=== PATIENT | male | born 1955 | race Caucasian/White ===

== ENCOUNTER → 2019-01-22 08:40 | Outpatient (CLI) | payer BC, SELFPAY ==
--- NOTE | 2019-01-22 09:06 | EKG12_ITS ---
Test Reason : PREOP Blood Pressure : / mmHG Vent. Rate : 073 BPM Atrial Rate : 073 BPM P-R Int : 160 ms QRS Dur : 160 ms QT Int : 432 ms P-R-T Axes : 000 034 -10 degrees QTc Int : 475 ms Normal sinus rhythm Right bundle branch block Possible Inferior infarct , age undetermined , cannot be excluded Abnormal ECG Confirmed by FRANCESCO EPPS, LYLY ([id number]), order tracer MICHAEL NORIEGA ([id number]) on 01/23/2019 9:40:43 AM Referred By: Darryl Block Confirmed By:LYLY MAYA MD
[2019-01-22 09:29] LABS: Hematocrit 49.7 % (40-54); Hemoglobin 16.3 g/dL (13.0-16.5); Mean Corp Hgb Conc 32.8 g/dL (32-36); Mean Corpuscular Volume 88.3 fL (80-94); Platelet Count 345 K/mm3 (150-450); RBC Distribution Width CV 13.3 % (11.6-14.6); RBC Distribution Width SD 43.2 fl (35.1-43.9); Red Blood Count 5.63 M/mm3 (4.6-6.2); White Blood Count 9.9 K/mm3 (4.4-11.0)
[2019-01-22 10:07] LABS: Anion Gap 6 (5-15); BUN 16 mg/dL (7-18); BUN/Creat Ratio 19.6 RATIO (10-20); Calcium,Total 8.9 mg/dL (8.5-10.1); Chloride 101 mmol/L (98-107); Creatinine, Serum 0.82 mg/dL (0.70-1.30); EST Glomerular Filtration Rate 102 mL/min (>60); Est Glom Filt Rate - Afr Amer 123 mL/min (>60); Glucose 232 mg/dL (74-106); PSA,Total - Annual Screen 0.86 ng/mL (0.00-4.00); Potassium 4.3 mmol/L (3.5-5.1); Sodium Level 136 mmol/L (136-145)
== END ==
PROVIDERS: Referring Provider Urology; Visit Provider Urology
DX: Z01.812 Encounter for preprocedural laboratory examination (principal); I45.10 Unspecified right bundle-branch block; Z12.5 Encounter for screening for malignant neoplasm of prostate
CPT/HCPCS: 36415; 80048; 84153; 85027; 93005; G0103

== ENCOUNTER → 2020-07-24 09:05 | Outpatient (CLI) | payer BC, SELFPAY ==
[2020-07-15 08:04] VITALS: BMI 36.0
--- NOTE | 2020-07-24 14:04 | PFTCOMP_ITS ---
COMPLETE PULMONARY FUNCTION TEST INTERPRETATION Brief HPI: Patient is a 64 year old male, currently under the care of myself, who presents to [facility] for complete pulmonary function tests secondary to diagnosis of cough. Respiratory therapist reports good effort and reproducible results. Interpretation: Forced expiration spirometry shows no large airways obstructive ventilatory defect with an FEV1 of 96% predicted. There is no significant bronchodilator response by strict ATS criteria. Spirograms are of good quality and plateau normally. The respiratory flow volume loop shows a normal pattern. Lung volumes by body plethysmography show a normal total lung capacity at 6.25 L, 115% predicted. All other lung volumes are within normal limits. Diffusion capacity by carbon monoxide is normal at 108% predicted. The airway resistance is normal. No previous pulmonary function tests were available for review. Impression: These pulmonary function tests are within normal limits
== END ==
PROVIDERS: PCP Family Medicine; Referring Provider Internal Medicine Critical Care Medicine; Visit Provider Internal Medicine Critical Care Medicine
DX: R05 Cough (principal); G47.10 Hypersomnia, unspecified
CPT/HCPCS: 94060; 94726; 94729; 95806

== ENCOUNTER 2023-01-24 07:50 | Inpatient (IN) | payer MEDICARE, SELFPAY ==
[2023-01-24] VITALS (9 sets, daily range): BP systolic 125–164; BP diastolic 63–98; PULSE 96–105; RESP 16–20; TEMP 35.9–37.5; O2SAT 86–98; BMI 36.4; BMI 35.9
--- NOTE | 2023-01-24 08:10 | CT_ITS ---
STUDY: CT ABDOMEN AND PELVIS WITH CONTRAST REASON FOR EXAM: Male, 67 years old. Lower abdominal wall cellulitis possible abscess. Recent drainage of a right groin abscess. RADIATION DOSAGE (If Supplied By Facility): CTDIvol = ( 17.19 ) mGy, DLP = ( 1471.97 ) mGycm TECHNIQUE: Transaxial images were obtained from the dome of the diaphragm to the symphysis pubis without oral contrast. 100 ML ISOVUE 300 was administered. Sagittal and coronal images were reconstructed. Individualized dose optimization techniques were used for this CT. COMPARISON: None. FINDINGS: The visualized lung bases are unremarkable. Coronary artery calcification. There is decreased attenuation of the liver consistent with steatosis. Normal gallbladder and extrahepatic biliary system. Normal spleen. Normal pancreas. Normal bilateral adrenal glands. Nonobstructive right intrarenal calculi. The largest calculus measures 8 mm. There is a 5.5 cm x 5.4 cm cyst in the inferior medial portion of the right kidney. Nonspecific right perinephric stranding. Nonobstructive calculi are seen within the left kidney. The largest calculus measures 6 mm. There is a 1 cm cyst in the inferior midportion of the left kidney. Nonspecific left perinephric stranding. There is a small hiatal hernia. Normal small intestine. Normal colon. The appendix is visualized and appears normal. There is scattered atherosclerotic calcification of the abdominal aorta and its major visceral branches., without a demonstrated aneurysm. Normal inferior vena cava. Normal retroperitoneum. Normal urinary bladder. There is a small umbilical hernia containing fat. There is a 3.5 cm x 18.7 cm soft tissue density with air-fluid level arising from the proximal aspect of the right groin extending down into the right side of the symphysis down to the level of the scrotum. This is consistent with an abscess. Increased markings are seen in the surrounding subcutaneous fat. The air component may be related to the recent incision and drainage. Normal osseous structures. CT/Abdomen/Pelvis W IV Cont ONLY IMPRESSION: Large complex soft tissue density with air-fluid level extending from the region of the groin down to the right scrotal region with air-fluid levels. This is in keeping with an abscess. Nonobstructive bilateral intrarenal calculi. Bilateral renal cysts. Nonspecific bilateral perinephric stranding. Fatty infiltration of the liver. Electronically Signed: Arian Lopez MD at 10:19 EST ,
--- NOTE | 2023-01-24 08:11 | EX.ED.DYSGE1 ---
HPI History of Present Illness Chief Complaint: Cellulitis Informant: patient Narrative Narrative: Patient presents with cellulitis in the right groin area that is not improving. Patient states that about 2 weeks ago he had a boil in the right groin. He got some drainage from it. He gets these commonly. But it was not getting better and the area is getting more red and swollen. He went to urgent care. They were able to get a little drainage from it. But he had a lot of thickened tissue in the suprapubic region and they did start him on antibiotics. He has been on doxycycline and taking it twice a day for the last 6 to 7 days. But he states is just not getting a lot better. The drainage has stopped. He is not having nausea or vomiting. He has had some subjective fevers but not measured. Patient denies any medical problems but has not seen a physician in quite some time. Only meds that he takes are an occasional Naprosyn. PFSH PFS Medical History Kidney stones Home Medications doxycycline hyclate 100 mg capsule 100 mg PO BID antibiotic 01/24/23 [History Last Taken 01/23/23] Allergy/AdvReac Type Severity Reaction Status Date / Time No Known Allergies Allergy Verified 01/24/23 07:51 Surgical History History of hammer toe correction History of knee surgery History of tonsillectomy Social History Smoking Status: Never smoker second hand exposure: Yes ROS ROS ED Constitutional Constitutional ED: Reports subjective Eyes Eyes: Denies blurry vision ENT ENT ED: Denies rhinorrhea Cardiovascular Cardiovascular: Denies chest pain, palpitations or racing heartbeat Respiratory/Chest Respiratory/Chest: Denies cough or dyspnea Gastrointestinal Gastrointestinal: Reports other Details: Patient has some discomfort in the lower abdominal wall but overall his abdomen does not hurt and he is eating drinking and moving bowels normally. ; Denies abdominal pain Genitourinary Genitourinary ED: Denies dysuria or hematuria Musculoskeletal Musculoskeletal: Denies myalgias Integumentary Reports abscess, rash and other Details: See history present illness. Neurologic Neurologic: Denies headache(s) Endocrine Endocrinology: Denies polydipsia or polyuria Hematologic/Lymphatic Hematologic/Lymphatic: Denies easy bleeding, easy bruising or lymphadenopathy Allergic/Immunologic Allergic/Immunologic ED: Denies urticaria EXAM Physical Exam Narrative Exam Narrative: CONSTITUTIONAL: Patient is nontoxic in appearance. The patient looks comfortable. HEENT: No notable trauma. Mucous membranes moist. EYES: No conjunctival injection. CARDIOVASCULAR: Minimally tachycardic rate currently just at about 90 though. Regular rhythm. No notable murmur. No JVD. RESPIRATORY: No respiratory distress. Breathing is unlabored. No wheezes. No rhonchi. No rales. No pain with a deep breath. GASTROINTESTINAL: Not distended. Bowel sounds are normal. No tenderness. No guarding. No rebound. No palpable mass. No bruit. GENITOURINARY: In the right side of his lower abdomen under the abdominal fold, there is some erythema. There is a small open area about 5 x 12 mm. Just lateral to this there is a little bit of the softness but it appears to have fully drained. The area is quite indurated. Moving medially in the lower abdomen centrally the fatty tissue there is thickened and indurated. But it does not appear to be fluctuant on exam but there is quite a bit of induration and it could hide abscess under this. It is not notably tender. Scrotum is enlarged but not at all indurated and its not painful. MUSCULOSKELETAL: Atraumatic. No peripheral edema. NEUROLOGICAL: Patient is alert and appropriate. No focal deficit noted. SKIN: See above. PSYCHIATRIC: Patient is calm. Mood is appropriate. Const Vital Signs: 01/24/23 07:51 Temperature 96.7 F L Temperature Source Temporal Pulse Rate 105 H Respiratory Rate 16 Blood Pressure 164/97 H Blood Pressure Mean 119 Pulse Ox 95 Oxygen Delivery Method Room Air MDM MDM MDM Narrative Medical decision making narrative: Patient now has 2 weeks of symptoms with almost 1 week on antibiotics. He is having some mild subjective fevers. But he still has a fair amount of swelling and induration. I will do blood work. Patient has no history of diabetes but has not been seen by a physician in years to have this checked. We will also scan the area looking for deeper involvement of the soft tissue. I will initiate vancomycin at this time. My independent interpretation of the patient's CT scan of the abdomen pelvis with IV contrast shows extensive involvement with subcutaneous abscess and some air along the right lower abdominal wall inguinal area and a little bit streaking down the right groin. Final reading is similar. Note is also made of nonspecific perinephric stranding. Patient CBC shows significantly elevated white count at 20,000. It does not appear as though he is on any steroids. Relatively high neutrophils. Patient's electrolytes show minimally low sodium. Renal functions normal. However, the patient's glucose is quite high at 321. This is low due to some background diabetes in the face of a current infection. He is given IV fluids. I will give him a low-dose of insulin to see how he responds to this. With the CT findings as above we did also check lactic acid that was normal at 1.0. C-reactive protein was high at 204. Hemoglobin A1 C is also high at 10.9. I discussed the case with surgeon, Dr. Turner who came down to evaluate the patient. Plan is further antibiotics and surgery. I also discussed the case with Dr. Wagoner who also be involved managing the patient medically. Lab Data Attestation: I reviewed the patient's lab results. Labs: Laboratory Results - last 24 hr 01/24/23 01/24/23 08:25 10:15 WBC 20.0 H RBC 5.48 Hgb 15.1 Hct 47.6 MCV 86.9 MCH 27.6 MCHC 31.7 L RDW Std Deviation 44.6 H RDW Coeff of July 13.9 Plt Count 375 MPV 10.1 Immature Gran % (Auto) 4.500 H Neut % (Auto) 75.5 H Lymph % (Auto) 9.6 L [place] % (Auto) 8.9 Eos % (Auto) 0.3 Baso % (Auto) 1.2 H Absolute Neuts (auto) 15.1 H Absolute Lymphs (auto) 1.92 Nucleated RBC % 0 Differential Comment SCANNED Diff Path Review May foll Sodium 135 L Potassium 4.4 Chloride 99 Carbon Dioxide 31.0 Anion Gap 5 BUN 11 Creatinine 0.87 Estim Creat Clear Calc 73.64 Est GFR (MDRD) Af Amer 113 Est GFR (MDRD) Non-Af 94 BUN/Creatinine Ratio 12.6 Glucose 321 H Hemoglobin A1c 10.9 H Lactic Acid 1.0 Calcium 9.3 C-React Prot Ext Range 204.00 H Radiography Diagnostic Testing: Clinical Impression(s) from Imaging Studies Abdomen/Pelvis CT 01/24/23 08:10 IMPRESSION: Large complex soft tissue density with air-fluid level extending from the region of the groin down to the right scrotal region with air-fluid levels. This is in keeping with an abscess. Nonobstructive bilateral intrarenal calculi. Bilateral renal cysts. Nonspecific bilateral perinephric stranding. Fatty infiltration of the liver. Electronically Signed: Arian Lopez MD at 10:19 EST , Management Discussion w/another healthcare provider: Hospitalist and [employer] Discharge Plan Triage Chief Complaint: Cellulitis ED Provider: Ashkan Burns Dx/Rx/DC Orders Clinical Impression: Abdominal wall cellulitis, Failure of outpatient treatment, New onset type 2 diabetes mellitus, Abscess of abdominal wall, Leukocytosis Prescriptions: No Action doxycycline hyclate 100 mg capsule 100 mg PO BID Patient Comments: RX FILLED AND STARTED ON 01-19-23. RX FILLED A 7 DAY SUPPLY Rx Instructions: TAKE 1 CAPSULE BY MOUTH 2 TIMES A DAY FOR 7 DAYS Primary Care Provider: Care Physician,No Primary Referrals: Care Physician,No Primary [Primary Care Provider] - Disposition Disposition: Acute Care Hospital [facility]
[2023-01-24] MEDS: 0.9% Normal Saline (1000mL) 1,000 ML 1000 ML IV (08:27)
[2023-01-24 08:36] LABS: Absolute Lymphocyte Count 1.92 X10^3/uL (0.83-4.51); Absolute Neutrophil Count 15.1 X10^3/uL (2.0-7.7); Basophil# 0.24 X10^3/uL; Basophil% 1.2 % (0-1); Eosinophil# 0.07 X10^3/uL; Eosinophils% 0.3 % (0-5); Hematocrit 47.6 % (40-54); Hemoglobin 15.1 g/dL (13.0-16.5); Lymphocyte # 1.92 X10^3/ul (0.83-4.51); Lymphocyte % 9.6 % (19-41); Mean Corp Hgb Conc 31.7 g/dL (32-36); Mean Corpuscular Hgb 27.6 pg (27.0-32.0); Mean Corpuscular Volume 86.9 fL (80-94); Mean Platelet Vol. 10.1 fl (6.2-12.0); Monocyte# 1.78 X10^3/uL; Monocyte% 8.9 % (0-10); NRBC Flagged by Analyzer 0 % (0-5); Neutrophil # 15.09 X10^3/uL (2.7-7.7); Neutrophil % 75.5 % (47-70); POSITIVE DIFFERENTIAL YES; Platelet Count 375 K/mm3 (150-450); RBC Distribution Width CV 13.9 % (11.6-14.6); RBC Distribution Width SD 44.6 fl (35.1-43.9); Red Blood Count 5.48 M/mm3 (4.6-6.2)
[2023-01-24] MEDS: Vancomycin HCl 1,500 MG in 0.9% Normal Saline (500mL Bag) 500 ML 250 MG IV (08:39)
[2023-01-24 08:45] LABS: Differential Indicated SCAN CRITERIA MET
[2023-01-24 08:48] LABS: Anion Gap 5 (5-15); BUN 11 mg/dL (7-18); BUN/Creat Ratio 12.6 RATIO (10-20); Calcium,Total 9.3 mg/dL (8.5-10.1); Chloride 99 mmol/L (98-107); Creatinine, Serum 0.87 mg/dL (0.70-1.30); EST Glomerular Filtration Rate 94 mL/min (>60); Est Glom Filt Rate - Afr Amer 113 mL/min (>60); Estimated Creatinine Clearance 73.64 ml/min; Glucose 321 mg/dL (74-106); Potassium 4.4 mmol/L (3.5-5.1); Sodium Level 135 mmol/L (136-145)
[2023-01-24] MEDS: Insulin Lispro 100 UNIT/ML INSULN.PEN SC ×4 (09:04→21:44)
[2023-01-24 09:11] LABS: Differential Comment SCANNED
[2023-01-24] MEDS: Morphine 4 MG/ML Syringe IV (10:27)
[2023-01-24] MEDS: Ondansetron 4 MG/2 ML Vial IV (10:27)
--- NOTE | 2023-01-24 11:13 | HP.PCM_ITS ---
HPI - General General Date of Admission: 01/24/23 Date of Service: 01/24/23 Chief Complaint: Cellulitis right groin HPI Narrative JASON JOYNER, is a 67 M who presents with a 10 day history of a right groin boil. Patient notes he has a history of boils along the underside of the abdomen. Patient notes they typically spontaneously rupture and resolve. Patient notes this specific boil did not. He notes last Monday his attempted to squeeze the abscess without any release. Patient then presented to urgent care in [facility], where the provider performed an incision and drainage of the area. Per patient there was a moderate amount of drainage. Patient notes he was placed on doxycycline for 10 days. Patient notes yesterday the drainage had suddenly stopped. He states the pubic region continued to feel swollen and the incision was closed. Patient contacted the provider at urgent care this morning and was told to present to the ED. Patient denies feeling feverish. Patient denies any medical history. Patient notes years ago he was told he was diabetic and was started on medication per his . She notes that he felt he did not need the medication and would change his diet to assist with his hyperglycemia. He then family physician was agreeable. Patient and his used to live in [place]. Since moving to [place] recently, they have not established with a family practice physician. [facility] Medical History Kidney stones Home Medications doxycycline hyclate 100 mg capsule 100 mg PO BID antibiotic 01/24/23 [History Last Taken 01/23/23] Allergy/AdvReac Type Severity Reaction Status Date / Time No Known Allergies Allergy Verified 01/24/23 07:51 Surgical History History of hammer toe correction History of knee surgery History of tonsillectomy Social History Smoking Status: Never smoker second hand exposure: Yes ROS Constitutional Constitutional: Reports fatigue Eyes Eyes: Reports systems reviewed and no addt'l complaints, except as documented ENT HEENT: Reports systems reviewed and no addt'l complaints, except as documented Cardiovascular Cardiovascular: Reports systems reviewed and no addt'l complaints, except as documented Respiratory/Chest Respiratory/Chest: Reports systems reviewed and no addt'l complaints, except as documented Gastrointestinal Gastrointestinal: Reports systems reviewed and no addt'l complaints, except as documented Genitourinary Genitourinary: Reports systems reviewed and no addt'l complaints, except as documented Musculoskeletal Musculoskeletal: Reports systems reviewed and no addt'l complaints, except as documented Integumentary Integumentary: Reports systems reviewed and no addt'l complaints, except as documented Neurologic Neurologic: Reports systems reviewed and no addt'l complaints, except as docu mented Psychiatric Psychiatric: Reports systems reviewed and no addt'l complaints, except as documented Endocrine Endocrinology: Reports systems reviewed and no addt'l complaints, except as documented Hematologic/Lymphatic Hematologic/Lymphatic: Reports systems reviewed and no addt'l complaints, except as documented Allergic/Immunologic Allergic/Immunologic: Reports systems reviewed and no addt'l complaints, except as documented Vital Signs Vital Signs Vital Signs: 01/24/23 07:51 Temperature 96.7 F L Temperature Source Temporal Pulse Rate 105 H Respiratory Rate 16 Blood Pressure 164/97 H Blood Pressure Mean 119 Pulse Ox 95 Oxygen Delivery Method Room Air Weight Weight: 219 lb Body Mass Index (BMI) 36.4 Physical Exam Const alert, oriented x3 and no apparent distress HEENT normocephalic and head/scalp atraumatic Eyes PERRL Neck full ROM Lymph Lymphatic: no lymphadenopathy noted Chest inspection of chest normal Resp normal respiratory effort and clear to auscultation bilaterally Cardio Rate: tachycardic Rhythm: regular rhythm GI GI Narrative: Abdomen- central obesity. right groin with notable erythema extending across the mons pubis. Previous incision in the right groin which is now closed. Palpable fluctuance. Just superior to the right groin incision there is another previous erythematous lesion. Tenderness is noted in the right groin and extending across the mons pubis. no CVA tenderness Back/Spine no CVA tenderness Extremity normal to inspection Skin Wounds: wounds noted Neuro no focal motor deficits and no sensory deficits noted Psych Appearance: grossly normal Speech: normal speech Results Lab / Micro Data 01/24/23 08:25 01/24/23 08:25 Labs: Laboratory Results - last 24 hr 01/24/23 08:25: WBC 20.0 H, RBC 5.48, Hgb 15.1, Hct 47.6, MCV 86.9, MCH 27.6, MCHC 31.7 L, RDW Std Deviation 44.6 H, RDW Coeff of July 13.9, Plt Count 375, MPV 10.1, Immature Gran % (Auto) 4.500 H, Neut % (Auto) 75.5 H, Lymph % (Auto) 9.6 L , [place] % (Auto) 8.9, Eos % (Auto) 0.3, Baso % (Auto) 1.2 H, Absolute Neuts (auto) 15.1 H, Absolute Lymphs (auto) 1.92, Nucleated RBC % 0, Differential Comment SCANNED, Diff Path Review July foll, Sodium 135 L, Potassium 4.4, Chloride 99, Carbon Dioxide 31.0, Anion Gap 5, BUN 11, Creatinine 0.87, Estim Creat Clear Calc 73.64, Est GFR (MDRD) Af Amer 113, Est GFR (MDRD) Non-Af 94, BUN/Creatinine Ratio 12.6, Glucose 321 H, Calcium 9.3 01/24/23 10:15: Lactic Acid 1.0 Radiology Impression Abdomen/Pelvis CT 01/24/23 08:10 IMPRESSION: Large complex soft tissue density with air-fluid level extending from the region of the groin down to the right scrotal region with air-fluid levels. This is in keeping with an abscess. Nonobstructive bilateral intrarenal calculi. Bilateral renal cysts. Nonspecific bilateral perinephric stranding. Fatty infiltration of the liver. Electronically Signed: Arian Lopez MD at 10:19 EST , Assessment & Plan Assessment/Plan (1) Abdominal wall cellulitis: PLAN: Dr. Turner has also evaluated this patient. Dr. Turner will plan to perform an incision, drainage and debridement of the right groin abscess. Procedure details, risks and benefits have been explained. Plan to admit patient to standard medical/surgical floor with broad spectrum antibiotics. Patient will proceed to the OR urgently today for the proposed procedure above. We will consult the hospitalist to assist with new diagnosis of diabetes and hyperglycemia. Patient and his have had the opportunity to ask and have questions answered. Patient verbally understands and agrees with the plan. We will continue to monitor this patient and assist with wound care. Thank you for allowing us to participate in this patient's care. (2) Abscess of right groin: Charges/Coding Visit Charges OBSV E&M: 89380 Observ/hosp same date L2
[2023-01-24 11:44] LABS: Hemoglobin A1c 10.9 % (3.8-5.6)
--- NOTE | 2023-01-24 11:49 | PN.HOSP_ITS ---
Reason for Visit Reason for Visit: Diagnoses Cutaneous abscess of groin (01/24/23) Cellulitis of abdominal wall (01/24/23) Subjective Subjective Patient is a 67-year-old male with remote history of diabetes that had been diet controlled, kidney stones, obesity who presented to [facility] 01/24/2023 with right groin pain and erythema. He had what sounded to be a right inguinal abscess 2 weeks ago that he picked open and drained however it progressed so he went to urgent care a week ago and it was I indeed and he was started on Doxy but given he is not improving he came to the ED. In the ED heart rate 105 and white count 20 with a left shift and a CRP of 204 as well as glucose 321. CT abdomen pelvis obtained which showed large complex soft tissue density with air-fluid level extending from the region of the groin down to the right scrotal region with air-fluid levels suspicious for abscess. Patient given broad-spectrum antibiotics. Surgery contacted in ED and admitted patient with plan for OR. Hospitalist contacted for consult for medicine management. Patient seen with family at bedside and he reports history as above. Right now still having some burning pain in the groin that goes all the way across and r eports at home he would alternate between hot and cold but had not measured fever. Has had a dry cough for 2 weeks but no sputum and no shortness of breath or any sore throat or other associated symptoms. Has had some pressure headaches recently as well which she typically does not. He denied any other complaints. Objective Data Objective Data Vital Signs: Vital Signs Temp Pulse Resp BP Pulse Ox O2 Del Method 96.7 F L 105 H 16 164/97 H 95 Room Air 01/24/23 07:51 01/24/23 07:51 01/24/23 07:51 01/24/23 07:51 01/24/23 07:51 01/24/23 07:51 Oxygen Delivery Method Room Air Weight: 99.337 kg Body Mass Index (BMI) 36.4 Lab / Micro Data 01/24/23 08:25 01/24/23 08:25 Labs: Laboratory Results - last 24 hr 01/24/23 08:25: WBC 20.0 H, RBC 5.48, Hgb 15.1, Hct 47.6, MCV 86.9, MCH 27.6, MCHC 31.7 L, RDW Std Deviation 44.6 H, RDW Coeff of July 13.9, Plt Count 375, MPV 10.1, Immature Gran % (Auto) 4.500 H, Neut % (Auto) 75.5 H, Lymph % (Auto) 9.6 L , [place] % (Auto) 8.9, Eos % (Auto) 0.3, Baso % (Auto) 1.2 H, Absolute Neuts (auto) 15.1 H, Absolute Lymphs (auto) 1.92, Nucleated RBC % 0, Differential Comment SCANNED, Diff Path Review July foll, Sodium 135 L, Potassium 4.4, Chloride 99, Carbon Dioxide 31.0, Anion Gap 5, BUN 11, Creatinine 0.87, Estim Creat Clear Calc 73.64, Est GFR (MDRD) Af Amer 113, Est GFR (MDRD) Non-Af 94, BUN/Creatinine Ratio 12.6, Glucose 321 H, Hemoglobin A1c 10.9 H, Calcium 9.3, C- React Prot Ext Range 204.00 H 01/24/23 10:15: Lactic Acid 1.0 Radiography Diagnostic Testing: Radiology Impression Abdomen/Pelvis CT 01/24/23 08:10 IMPRESSION: Large complex soft tissue density with air-fluid level extending from the region of the groin down to the right scrotal region with air-fluid levels. This is in keeping with an abscess. Nonobstructive bilateral intrarenal calculi. Bilateral renal cysts. Nonspecific bilateral perinephric stranding. Fatty infiltration of the liver. Electronically Signed: Arian Lopez MD at 10:19 EST , Physical Exam Narrative General: Alert, oriented, no apparent distress HEENT: Atraumatic, normocephalic Eyes: Anicteric, normal conjunctiva, extraocular movements grossly intact Neck: Supple Respiratory: Clear to auscultation bilaterally, normal respiratory effort Cardiovascular: Regular rate and rhythm GI: Soft, nontender, nondistended Extremities: No edema Musculoskeletal: Moving all extremities Neuro: No overt focal neurological deficits Skin: Patient with erythema and induration from open area on right side of groin and under pannus all the way across groin, warm and erythematous Psych: Cooperative Assessment & Plan Assessment/Plan (1) New onset type 2 diabetes mellitus: (2) RC (obstructive sleep apnea): (3) Kidney stones: (4) Abscess of right groin: PLAN: Plan #Right groin abscess -Admitted to surgery service, on vancomycin, clindamycin, and Zosyn -Patient to be taken in the OR, will have Intra-Op cultures -Blood cultures -May ultimately need ID consult but can decide further pending culture results -Glucose management #Type 2 diabetes mellitus -A1c 10.9 indicating glucose is not only elevated due to infection -Glucose checks and sliding scale insulin -Patient will need improved control and may need insulin on DC given A1c of a lmost 11 -We will continue sliding scale for 24 hours and then requirement can be calculated and transitioned to long-acting and possibly Premeal #RC -Followed with Dr. Bah in 2020 and patient at the time had not initiated PAP therapy -Was lost to follow-up #DVT ppx: SCDs Rupali Wagoner MD Time spent in the patient's overall evaluation,decision-making process, review of diagnostic data, adjustment of management, discussion with other providers, nursing nursing and ancillary staff involved in patient's care documentation, 35 minutes Charges/Coding Visit Charges Inpatient E&M: 51701 Subs Hosp L2
--- NOTE | 2023-01-24 12:55 | PCM.RX.CS ---
Consult Antibiotic Management Pharmacy has been consulted to manage selected antiobiotic: Vancomycin Type of Intervention Type of Consult: New start Suspected Infection Suspected Infection: Skin/Soft tissue Prior Doses of Antibiotics Prior Doses of Antibiotics Received/Current Regimen: received vanc 1500mg IV x1 (standard dose) in E.R. starting at 08:39 today Labs Labs: Sodium 135 mmol/L (136-145) L 01/24/23 08:25 Potassium 4.4 mmol/L (3.5-5.1) 01/24/23 08:25 Chloride 99 mmol/L (98-107) 01/24/23 08:25 Carbon Dioxide 31.0 mmol/L (21.0-32.0) 01/24/23 08:25 Anion Gap 5 (5-15) 01/24/23 08:25 BUN 11 mg/dL (7-18) 01/24/23 08:25 Creatinine 0.87 mg/dL (0.70-1.30) 01/24/23 08:25 Est GFR (MDRD) Af Amer 113 mL/min (>60) 01/24/23 08:25 Est GFR (MDRD) Non-Af 94 mL/min (>60) 01/24/23 08:25 BUN/Creatinine Ratio 12.6 RATIO (10-20) 01/24/23 08:25 Glucose 321 mg/dL (74-106) H 01/24/23 08:25 Dosing Weight Weight used for dosin kg Estimated Creatinine Clearance Estimated Creatinine Clearance: 91.1ml/min Goal Trough Goal Trough: 15-20 mcg/mL Pharmacy Plan for Drug Dosing Pharmacy Plan for Drug Dosing: Per [facility] dosing protocol, continue with 2000mg IV q12h. Since the patient was ordered an initial load dose upon admission to the floor, will start the 2000mg dosing a little earlier than 12 hours after the 1500mg E.R. dose since that E.R. dose was a standard dose. Will check a trough before the 4th total dose tomorrow evening. The patient's CrCl of 91.1ml/min was calculated using an adjusted body weight of 76.1kg. Pharmacy Service will continue to monitor and adjust dosing as required. Follow-Up Labs Follow-Up Labs: Trough: Vancomycin Date/Time Labs Ordered Labs to be done on [date and time ordered]: 01/25/23 18:30
[2023-01-24] MEDS: 0.9% Normal Saline (1000mL) 1,000 ML 125 ML IV ×2 (12:58→17:21)
--- NOTE | 2023-01-24 13:20 | NURSING ---
Patient left unit for OR. Report Given
[2023-01-24] MEDS: Clindamycin 600 MG/50 ML BAG 100 MG IV ×2 (13:22→17:23)
[2023-01-24] MEDS: Bupivacaine 0.25% 30 ML Vial (14:32)
[2023-01-24] MEDS: Piperacil/Tazobactam 4.5 GM in 0.9% Normal Saline (100mL MB+) 100 ML IV (15:10)
[2023-01-24] MEDS: DAKIN'S SOL HALF STRENGTH (=0.25%) TOPICAL (15:10)
[2023-01-24 15:58] LABS: Bedside Glucose 220 mg/dL (74-106)
--- NOTE | 2023-01-24 16:06 | OP.PCM_ITS ---
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 Copious purulence emanating from right lateral abdominal wall I&D site (total purulence collected in suction container was 250 mL) ? Communications between right lateral abdominal wall abscess and mons abscess centrally via a narrow channel ? Tracking of infection superiorly and inferiorly along fascial planes of the rectus and pubic bone, respectively ? Final wound measurements length 3 cm X width 21 cm X depth 4 cm (medial and inferior undermining of 10.5 cm, lateral and superior undermining of 11 cm) Surgeon: Kenneth Turner special education secretary: None Type of Anesthesia: General/Supplemental Anesthesiologist: Maikol Addison Specimen's removed: 1. Culture swabs for aerobic and anaerobic micro 2. Tissue culture Drains: None Estimated Blood Loss (mL): 100 Description of Procedure: After obtaining written consent and confirming patient was appropriately prepped with removal of all intervening hair in the preoperative holding area, he was brought to the operating room where he was positioned supine on the exam room table. He then underwent induction with general endotracheal anesthetic per anesthesia and his abdomen/right groin was prepped and draped in usual sterile fashion with a Betadine prep. A verbal timeout was conducted to confirm the patient and procedure. I bluntly probed patient's prior I&D site in his right lateral lower abdominal wall and this immediately resulted in expression of copious purulent fluid. Suction was applied to this egress until I was able to decompress the cavity enough to fully insert a finger and extend the incision medially and laterally using electrocautery to maintain hemostasis as the inci mireille was made. Initially there appeared to be a rather discrete collection of purulence in the right lateral abdominal wall, however, this also appeared to communicate to the medial mons fluctuance via a small channel and this channel was digitally probed and disrupted resulting in additional expression of purulence. To facilitate complete drainage of the area and postoperative packing I extended my incision medially over the midline in the vicinity of the pubic tubercle. Bluntly I probed inferiorly and found the soft tissue was disrupted down to the superior portion of the scrotum but did not appear to track any more inferiorly than this extent. As I reinspected the wound cavity from this medial extension I did find a cut lumen that likely represented a disruption of the superficial epigastric vein. This was secured via a suture ligature using 3-0 Vicryl. Digitally I also probed the wound in the lateral aspect and found that the tissue was disrupted in a cephalad orientation well onto the rectus fascia. Using finger fracture to guide the extent of this blunt dissection I proceeded until it met resistance. Notably, there was minimal purulence from this area. Lastly, directly laterally over the patient's iliac crest region there was minimal undermining. Wound cultures were obtained via wound swabs as well as tissue culture of some necrotic debris found in the medial aspect of the wound. The wound was then copiously irrigated with warm sterile saline. Selective electrocautery was applied to obtain hemostasis. Final wound dimensions were width of 21 cm by length of 3 cm by depth of 4 cm. There is notable undermining medially and inferiorly of 10.5 cm and laterally and superiorly of 11 cm. Knowing that the patient's infection would likely neutralize some of the effect, but still desiring any analgesic properties that might persist, the area was anesthetized with a local block using 30 mL of 0.25% Marcaine. Then, the cavity was packed tightly with 4 rolls of 4 inch Kerlix gauze tied end and that had been previously soaked in 0.25% Dakins solution. Abdominal pads were placed atop this gauze for added absorbency of the dressing and taped into place. Patient was then awoken from anesthetic and taken to PACU for ongoing recovery. He tolerated the procedure without any apparent complication. Complications None Admit VTE Documentation VTE Mechan Device Prophylaxis: SCD's Procedures Integumentary 10xxx: 42007 Drainage of skin abscess
--- NOTE | 2023-01-24 17:00 | NURSING ---
Patient back from PACU
[2023-01-24 17:37] LABS: Bedside Glucose 224 mg/dL (74-106)
[2023-01-24 18:06] LABS: Bedside Glucose 239 mg/dL (74-106)
[2023-01-24] MEDS: Vancomycin HCl 2,000 MG in 0.9% Normal Saline (500mL Bag) 500 ML 250 MG IV (18:51)
[2023-01-24] MEDS: Piperacil/Tazobactam 3.375 GM in 0.9% Normal Saline (50mL MB+) 50 ML IV (21:55)
[2023-01-24 23:01] LABS: Bedside Glucose 277 mg/dL (74-106)
[2023-01-25] MEDS: Clindamycin 600 MG/50 ML BAG 100 MG IV ×5 (00:52→22:28)
[2023-01-25 01:37] VITALS: BP 134/73; PULSE 97; RESP 16; TEMP 37.2; O2SAT 95
[2023-01-25 05:37] VITALS: BP 146/77; PULSE 99; RESP 16; TEMP 36.9; O2SAT 93
[2023-01-25] MEDS: Piperacil/Tazobactam 3.375 GM in 0.9% Normal Saline (50mL MB+) 50 ML IV ×3 (06:23→23:05)
[2023-01-25] MEDS: Insulin Lispro 100 UNIT/ML INSULN.PEN SC ×4 (06:47→21:05)
[2023-01-25 07:35] LABS: Bedside Glucose 251 mg/dL (74-106)
[2023-01-25] MEDS: Vancomycin HCl 2,000 MG in 0.9% Normal Saline (500mL Bag) 500 ML 250 MG IV (07:42)
[2023-01-25 07:54] LABS: Anion Gap 7 (5-15); BUN 9 mg/dL (7-18); BUN/Creat Ratio 12.6 RATIO (10-20); Calcium,Total 8.3 mg/dL (8.5-10.1); Chloride 103 mmol/L (98-107); Creatinine, Serum 0.72 mg/dL (0.70-1.30); EST Glomerular Filtration Rate 117 mL/min (>60); Est Glom Filt Rate - Afr Amer 142 mL/min (>60); Estimated Creatinine Clearance 88.98 ml/min; Glucose 258 mg/dL (74-106); Potassium 3.7 mmol/L (3.5-5.1); Sodium Level 135 mmol/L (136-145)
[2023-01-25 08:01] LABS: Absolute Lymphocyte Count 1.85 X10^3/uL (0.83-4.51); Absolute Neutrophil Count 18.6 X10^3/uL (2.0-7.7); Basophil# 0.08 X10^3/uL; Basophil% 0.3 % (0-1); Eosinophil# 0.02 X10^3/uL; Eosinophils% 0.1 % (0-5); Hematocrit 45.5 % (40-54); Hemoglobin 14.6 g/dL (13.0-16.5); Lymphocyte # 1.85 X10^3/ul (0.83-4.51); Lymphocyte % 7.9 % (19-41); Mean Corp Hgb Conc 32.1 g/dL (32-36); Mean Corpuscular Hgb 28.9 pg (27.0-32.0); Mean Corpuscular Volume 89.9 fL (80-94); Mean Platelet Vol. 10.6 fl (6.2-12.0); Monocyte% 8.1 % (0-10); NRBC Flagged by Analyzer 0 % (0-5); Neutrophil # 18.63 X10^3/uL (2.7-7.7); Neutrophil % 79.7 % (47-70); POSITIVE DIFFERENTIAL YES; Platelet Count 330 K/mm3 (150-450); RBC Distribution Width CV 14.2 % (11.6-14.6); RBC Distribution Width SD 47.2 fl (35.1-43.9); Red Blood Count 5.06 M/mm3 (4.6-6.2); White Blood Count 23.4 K/mm3 (4.4-11.0)
[2023-01-25 08:02] LABS: Differential Indicated SCAN CRITERIA MET
[2023-01-25 08:05] VITALS: O2SAT 94
[2023-01-25] MEDS: HYDROmorphone 0.5 MG/0.5 ML SYRINGE IV ×2 (08:12→13:39)
[2023-01-25] MEDS: 0.9% Saline Lock 10 ML Syringe IV (08:12)
[2023-01-25] MEDS: DAKIN'S SOL HALF STRENGTH (=0.25%) 1 APPLIC TOPICAL (08:59)
[2023-01-25 09:02] VITALS: BP 101/70; PULSE 91; RESP 14; TEMP 36.6; O2SAT 93
--- NOTE | 2023-01-25 09:09 | PCM.PN.SRG ---
Subjective Subjective Patient evaluated resting comfortably in bed. He notes the wound had drained through the dressings overnight. Nursing re-enforced the bandage with additional ABD pads. Patient was concerned that the drainage was grayish in color on the dressing as he took a picture of it. Patient notes some discomfort. He notes feeling overall improved. Objective Data Objective Data Vital Signs: Vital Signs Temp Pulse Resp BP Pulse Ox O2 Del Method O2 Flow Rate 98 F 91 14 101/70 93 Room Air 2 01/25/23 09:02 01/25/23 09:02 01/25/23 09:02 01/25/23 09:02 01/25/23 09:02 01/25/23 08:05 01/25/23 04:00 Oxygen Flow Rate (L/min) 2 Oxygen Delivery Method Room Air Weight: 216 lb 0.002 oz Body Mass Index (BMI) 35.9 Intake & Output: Intake and Output for Last 24 Hours 01/23/23 01/24/23 01/25/23 23:59 23:59 23:59 Intake Total 3248.34 / 3248.34 543.75 / 543.75 Output Total 400 / 400 450 / 450 Balance 2848.34 / 2848.34 93.75 / 93.75 Lab / Micro Data 01/25/23 06:50 01/25/23 06:50 Labs: Laboratory Results - last 24 hr 01/24/23 08:25: Differential Comment SCANNED, Diff Path Review July, Hemoglobin A1c 10.9 H, C-React Prot Ext Range 204.00 H 01/24/23 10:15: Lactic Acid 1.0 01/24/23 12:29: POC Glucose 220 H 01/24/23 16:08: POC Glucose 239 H 01/24/23 17:13: POC Glucose 224 H 01/24/23 21:42: POC Glucose 277 H 01/25/23 06:42: POC Glucose 251 H 01/25/23 06:50: WBC 23.4 H, RBC 5.06, Hgb 14.6, Hct 45.5, MCV 89.9, MCH 28.9, MCHC 32.1, RDW Std Deviation 47.2 H, RDW Coeff of July 14.2, Plt Count 330, MPV 10.6, Immature Gran % (Auto) 3.900 H, Neut % (Auto) 79.7 H, Lymph % (Auto) 7.9 L, [place] % (Auto) 8.1, Eos % (Auto) 0.1, Baso % (Auto) 0.3, Absolute Neuts (auto) 18.6 H, Absolute Lymphs (auto) 1.85, Nucleated RBC % 0, Sodium 135 L, Potassium 3.7, Chloride 103, Carbon Dioxide 25.0, Anion Gap 7, BUN 9, Creatinine 0.72, Estim Creat Clear Calc 88.98, Est GFR (MDRD) Af Amer 142, Est GFR (MDRD) Non-Af 117, BUN/Creatinine Ratio 12.6, Glucose 258 H, Calcium 8.3 L, Magnesium 2.0 Radiography Diagnostic Testing: Radiology Impression Abdomen/Pelvis CT 01/24/23 08:10 IMPRESSION: Large complex soft tissue density with air-fluid level extending from the region of the groin down to the right scrotal region with air-fluid levels. This is in keeping with an abscess. Nonobstructive bilateral intrarenal calculi. Bilateral renal cysts. Nonspecific bilateral perinephric stranding. Fatty infiltration of the liver. Electronically Signed: Arian Lopez MD at 10:19 EST , Physical Exam GI GI Narrative: Right groin- large open wound. Four rolls of Kerlix were completely removed. The wound tracks superior and to the right approximately 11 cm and inferior and medially towards the scrotum approximately 10.5 cm. Wound bed with healthy granulation tissue noted and multiple small areas of eschar and necrotic appearing tissue noted. Two Kerlix rolls with Dakins solution were used to repack the wound. ABD pads were applied and secured with tape. Patient tolerated the dressing change well. Assessment & Plan Assessment/Plan (1) Abscess of abdominal wall: PLAN: I have evaluated this patient in conjunction with Dr. Turner and Shawna Labs were reviewed. WBC has increased. HGB A1C was 10.9 Continue IV antibiotics Patient newly diagnosed diabetic Appreciate hospitalist input and recommendations Recommend twice daily packing changes. Pre-medicate patient prior to packing changes. Possible wound vac placement as early as this Monday We will continue to closely monitor this patient (2) Abscess of right groin: Charges/Coding Visit Charges Inpatient E&M: 58343 Subs Hosp L1 (no charge; post-op)
[2023-01-25 09:12] LABS: Differential Comment SCANNED
[2023-01-25 11:14] LABS: Bedside Glucose 304 mg/dL (74-106)
--- NOTE | 2023-01-25 12:00 | CASEMGMT ---
RN?CM?[employer] OPERATIONS MANAGER?CM?to room to meet with patient for initial transition planning/care coordination?assessment.?RN?CM?introduced self and role at [facility].? Pt voices understanding and consents to?assessment?at this time.? Pt resting in bed in no distress at this time.? @ bedside. Pt is A/O at this time and answers all questions appropriately.?? Care providers, pharmacy, and demographics verified/updated at this time. PCP: No PCP. sees Dr Carpenter and pt would like to go to him. is aware of on-line new patient referral form that [place] requires prior to accepting someone as a new patient and states she will look into completing this. They were also provided w/local PCP directory. Specialists:none [facility]erred [facility]acy: [facility] Insurance: [facility] Prescription Benefit:?Yes Living Will/HPOA:?Pt does not currently have LW/HCPOA and declines info at this time.? Pt made aware that he can contact as an out-pt and make appt in the future if he decides he would like to talk with someone about this or would like to utilize [facility] social work for advanced directive completion. LNOK: Anisha. 2 children Living Arrangements: Lives w/ in bi-level home w/14-20 steps to enter. States he does okay w/the stairs. Independent w/ADL's and IADL's and manages his own medications. 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 can assist as needed and plans to do so while pt is recovering. Pt and state they stay in [place] over the winter and had plans to leave around Feb 08. They state they now plan to stay in [place] until pt is recovered/healed Transportation:?Pt states drives self and states no transportation concerns at this time.? also drives. DME: ? Denies using any DME. He does not have a glucometer. Pt and made aware a script will be provided prior to discharge. ?Pt and state no need for further DME at this time.? HHC/SNF: No hx of either. Anticipate pt will discharge w/a wound vac. Pt inquiring about HHC and questions answered. Pt and would like pt to return home w/HHC and choose [facility] as 1st preference. They decline wanting a list of other [facility] options unless [facility] unable to accept him. Call to Lorie @ [facility] and referral made for for wound vac care/dsg changes and diabetic education. Pt wishes to return home and states has no further concerns with going home at time of discharge.??CM?to follow for any further discharge planning/needs.? Pt and voice no further concerns/needs at this time.? Advised them to ask for?CM?if any further questions/concerns/needs arise.? They voice understanding. Pt is a newly diagnosed diabetic. Provided w/[facility] card. PLAN:??Home w/HHC for wound vac care/dsg changes and diabetic education. Pt to be provided w/script for glucometer. Sharad BSN?RN?CM
[2023-01-25] MEDS: 0.9% Normal Saline (1000mL) 1,000 ML 125 ML IV (12:07)
--- NOTE | 2023-01-25 12:41 | PN.HOSP_ITS ---
Reason for Visit Reason for Visit: Diagnoses Type 2 diabetes mellitus without complications (01/24/23) Obstructive sleep apnea (adult) (pediatric) (01/24/23) Cutaneous abscess of abdominal wall (01/24/23) Cutaneous abscess of groin (01/24/23) Cellulitis of abdominal wall (01/24/23) Calculus of kidney (01/24/23) Subjective Subjective Patient is a 67-year-old gentleman with history of diabetes mellitus type 2 admitted with right groin abscess underwent I&D by general surgery cultures sent Objective Data Objective Data Vital Signs: Vital Signs Temp Pulse Resp BP Pulse Ox O2 Del Method O2 Flow Rate 98 F 91 14 101/70 93 Room Air 2 01/25/23 09:02 01/25/23 09:02 01/25/23 09:02 01/25/23 09:02 01/25/23 09:02 01/25/23 08:05 01/25/23 04:00 Oxygen Flow Rate (L/min) 2 Oxygen Delivery Method Room Air Weight: 97.976 kg Body Mass Index (BMI) 35.9 Intake & Output: Intake and Output for Last 24 Hours 01/23/23 01/24/23 01/25/23 23:59 23:59 23:59 Intake Total 3248.34 / 3248.34 1565.42 / 1565.42 Output Total 400 / 400 950 / 950 Balance 2848.34 / 2848.34 615.42 / 615.42 Lab / Micro Data 01/25/23 06:50 01/25/23 06:50 Labs: Laboratory Results - last 24 hr 01/24/23 12:29: POC Glucose 220 H 01/24/23 16:08: POC Glucose 239 H 01/24/23 17:13: POC Glucose 224 H 01/24/23 21:42: POC Glucose 277 H 01/25/23 06:42: POC Glucose 251 H 01/25/23 06:50: WBC 23.4 H, RBC 5.06, Hgb 14.6, Hct 45.5, MCV 89.9, MCH 28.9, MCHC 32.1, RDW Std Deviation 47.2 H, RDW Coeff of July 14.2, Plt Count 330, MPV 10.6, Immature Gran % (Auto) 3.900 H, Neut % (Auto) 79.7 H, Lymph % (Auto) 7.9 L , [place] % (Auto) 8.1, Eos % (Auto) 0.1, Baso % (Auto) 0.3, Absolute Neuts (auto) 18.6 H, Absolute Lymphs (auto) 1.85, Nucleated RBC % 0, Differential Comment SCANNED, Diff Path Review July foll, Sodium 135 L, Potassium 3.7, Chloride 103, Carbon Dioxide 25.0, Anion Gap 7, BUN 9, Creatinine 0.72, Estim Creat Clear Calc 88.98, Est GFR (MDRD) Af Amer 142, Est GFR (MDRD) Non-Af 117, BUN/Creatinine Ratio 12.6, Glucose 258 H, Calcium 8.3 L, Magnesium 2.0 01/25/23 10:48: POC Glucose 304 H Micro: Microbiology 01/24/23 14:58 Wound Abcess - Aerobic & Anaerobic Swabs Gram Stain - Final 01/24/23 14:58 Wound Abcess - Aerobic & Anaerobic Swabs Wound Culture - Preliminary Beta streptococcus 01/24/23 14:56 Tissue - Abdominal Gram Stain - Final 01/24/23 14:56 Tissue - Abdominal Wound Culture - Preliminary Beta streptococcus Physical Exam Narrative GENERAL: cooperative HEENT: Atraumatic; normocephalic EYES; Anicteric, Normal Conjunctiva NECK; supple, normal thyroid, RESPIRATORY: Diminished to auscultation CARDIOVASCULAR: Regular S1 S2, GI: soft, normoactive bowel sounds, : No Renal angle tenderness; EXTREMITIES: No edema, no clubbing, MUSCULOSKELETAL: Surgical dressing right groin NEURO: Awake; no lateralizing signs. SKIN: No Rash PSYCH; Flat affect Assessment & Plan Assessment/Plan (1) New onset type 2 diabetes mellitus: (2) RC (obstructive sleep apnea): (3) Kidney stones: (4) Abscess of right groin: PLAN: Plan Patient is a 67-year-old gentleman with history of diabetes mellitus type 2 admitted with right groin abscess underwent I&D by general surgery cultures sent 1. Right groin abscess ? Patient underwent I&D by general surgery on 01/24/2023 cultures sent wound subsequently packed awaiting results 2. New onset diabetes mellitus type 2 ? Hemoglobin A1c on admission was 10.9. Patient placed on Accu-Cheks before meals and at bedtime with sliding scale coverage as well as long-acting insulin with consultation placed to dietitian and diabetic education 3. Obstructive sleep apnea ? Patient was followed by pulmonary medicine, however PAP therapy was not initiated after patient was lost to follow-up patient encouraged to schedule an appointment with his physician practice administrator for reevaluation 4. Class II obesity with BMI of 35.9 ? Complicating care Weight loss advised 5. DVT prophylaxis ? We will recommend low molecular weight heparin if no contraindication will defer decision to initiate to general surgery Time spent in the patient's overall evaluation,decision-making process, review of diagnostic data, adjustment of management, discussion with other providers, nursing nursing and ancillary staff involved in patient's care documentation, 50 Minutes Charges/Coding Visit Charges Inpatient E&M: 91728 [facility] Hosp L3
--- NOTE | 2023-01-25 13:03 | CASEMGMT ---
RN JAME received call from [facility] and they are not in-network with patient's insurance. JAME will work on providing patient list of [facility] agencies in-network with his insurance.
[2023-01-25 15:15] LABS: Absolute Lymphocyte Count 1.85 X10^3/uL (0.83-4.51); Absolute Neutrophil Count 17.7 X10^3/uL (2.0-7.7); Basophil# 0.14 X10^3/uL; Basophil% 0.6 % (0-1); Eosinophil# 0.09 X10^3/uL; Eosinophils% 0.4 % (0-5); Hematocrit 42.4 % (40-54); Hemoglobin 13.4 g/dL (13.0-16.5); Lymphocyte # 1.85 X10^3/ul (0.83-4.51); Lymphocyte % 8.3 % (19-41); Mean Corp Hgb Conc 31.6 g/dL (32-36); Mean Corpuscular Hgb 27.9 pg (27.0-32.0); Mean Corpuscular Volume 88.3 fL (80-94); Mean Platelet Vol. 10.3 fl (6.2-12.0); Monocyte# 1.41 X10^3/uL; Monocyte% 6.4 % (0-10); NRBC Flagged by Analyzer 0 % (0-5); Neutrophil # 17.73 X10^3/uL (2.7-7.7); Neutrophil % 80.1 % (47-70); Platelet Count 346 K/mm3 (150-450); RBC Distribution Width SD 45.4 fl (35.1-43.9); White Blood Count 22.2 K/mm3 (4.4-11.0)
--- NOTE | 2023-01-25 15:25 | WOUNDNOTE ---
wound photo: right lower abdomen/groin
[2023-01-25 16:32] LABS: Bedside Glucose 276 mg/dL (74-106)
[2023-01-25] MEDS: Insulin Glargine-YFGN 100 UNIT/ML Pen 10 UNIT SC (17:12)
[2023-01-25 18:47] LABS: Vancomycin, Trough Level 12.5 ug/mL (5.0-15.0)
--- NOTE | 2023-01-25 19:38 | PCM.RX.CS ---
Consult Antibiotic Management Pharmacy has been consulted to manage selected antiobiotic: Vancomycin Type of Intervention Type of Consult: Follow-up Labs Labs: Sodium 135 mmol/L (136-145) L 01/25/23 06:50 Potassium 3.7 mmol/L (3.5-5.1) 01/25/23 06:50 Chloride 103 mmol/L (98-107) 01/25/23 06:50 Carbon Dioxide 25.0 mmol/L (21.0-32.0) 01/25/23 06:50 Anion Gap 7 (5-15) 01/25/23 06:50 BUN 9 mg/dL (7-18) 01/25/23 06:50 Creatinine 0.72 mg/dL (0.70-1.30) 01/25/23 06:50 Est GFR (MDRD) Af Amer 142 mL/min (>60) 01/25/23 06:50 Est GFR (MDRD) Non-Af 117 mL/min (>60) 01/25/23 06:50 BUN/Creatinine Ratio 12.6 RATIO (10-20) 01/25/23 06:50 Glucose 258 mg/dL (74-106) H 01/25/23 06:50 Vancomycin Trough 12.5 ug/mL (5.0-15.0) 01/25/23 18:00 Microbiology Microbiology: Microbiology 01/24/23 14:58 Wound Abcess - Aerobic & Anaerobic Swabs Gram Stain - Final 01/24/23 14:58 Wound Abcess - Aerobic & Anaerobic Swabs Wound Culture - Preliminary Beta streptococcus 01/24/23 14:56 Tissue - Abdominal Gram Stain - Final 01/24/23 14:56 Tissue - Abdominal Wound Culture - Preliminary Beta streptococcus Goal Trough Goal Trough: 15-20 mcg/mL Pharmacy Plan for Drug Dosing Pharmacy Plan for Drug Dosing: VANCOMYCIN LEVEL RECEIVED Current Vancomycin Dose: 2000mg IV Q12hr Number of Doses Received: 3 Vancomycin Level: 12.5 Hours Since Last Dose: 10.25hr Renal Function: 0.72 Renal Function Trend: stable Lab/Micro: Cx pending Vancomycin Plan/Comments: patient had a trough drawn which resulted in a value of 12.5 (goal 15-20). Patient's trough was drawn early (10.25hr since last dose), so true value is likely a little lower. Will increase vancomycin frequency and start patient on vancomycin 1250mg IV Q8h to start 11/15/23 @2000. Will obtain a trough prior to 4th dose of new regimen to reassess dosing schedule Pending Level: 01/26/23 @1930, prior to 4th dose of new regimen Pharmacy Service will continue to monitor and adjust dosing as required.
[2023-01-25] MEDS: Vancomycin HCl 1,250 MG in 0.9% Normal Saline (250mL Bag) 250 ML 167 MG IV (20:44)
[2023-01-25 20:54] VITALS: BP 121/73; PULSE 94; RESP 18; TEMP 36.8; O2SAT 93
[2023-01-25 21:27] LABS: Bedside Glucose 256 mg/dL (74-106)
[2023-01-25 22:00] VITALS: RESP 18
[2023-01-26] MEDS: Vancomycin HCl 1,250 MG in 0.9% Normal Saline (250mL Bag) 250 ML 167 MG IV ×2 (03:17→11:49)
[2023-01-26] MEDS: HYDROmorphone 0.5 MG/0.5 ML SYRINGE IV ×3 (04:22→14:23)
[2023-01-26] MEDS: 0.9% Saline Lock 10 ML Syringe IV ×3 (04:23→21:46)
[2023-01-26 05:01] VITALS: BP 129/84; PULSE 80; RESP 18; TEMP 36.5; O2SAT 95
[2023-01-26] MEDS: Clindamycin 600 MG/50 ML BAG 100 MG IV ×4 (05:05→23:32)
[2023-01-26] MEDS: Piperacil/Tazobactam 3.375 GM in 0.9% Normal Saline (50mL MB+) 50 ML IV ×3 (05:23→21:51)
[2023-01-26 05:31] LABS: Absolute Lymphocyte Count 1.92 X10^3/uL (0.83-4.51); Absolute Neutrophil Count 14.9 X10^3/uL (2.0-7.7); Basophil# 0.18 X10^3/uL; Basophil% 0.9 % (0-1); Eosinophil# 0.22 X10^3/uL; Eosinophils% 1.1 % (0-5); Hemoglobin 13.2 g/dL (13.0-16.5); Lymphocyte # 1.92 X10^3/ul (0.83-4.51); Lymphocyte % 9.8 % (19-41); Mean Corp Hgb Conc 31.4 g/dL (32-36); Mean Corpuscular Hgb 28.1 pg (27.0-32.0); Mean Corpuscular Volume 89.4 fL (80-94); Mean Platelet Vol. 10.3 fl (6.2-12.0); Monocyte# 1.34 X10^3/uL; Monocyte% 6.9 % (0-10); NRBC Flagged by Analyzer 0 % (0-5); Neutrophil # 14.91 X10^3/uL (2.7-7.7); Neutrophil % 76.5 % (47-70); Platelet Count 330 K/mm3 (150-450); RBC Distribution Width SD 46.4 fl (35.1-43.9); White Blood Count 19.5 K/mm3 (4.4-11.0)
[2023-01-26 05:52] LABS: Anion Gap 8 (5-15); BUN 12 mg/dL (7-18); BUN/Creat Ratio 16.1 RATIO (10-20); Calcium,Total 7.5 mg/dL (8.5-10.1); Chloride 105 mmol/L (98-107); Creatinine, Serum 0.75 mg/dL (0.70-1.30); EST Glomerular Filtration Rate 112 mL/min (>60); Est Glom Filt Rate - Afr Amer 135 mL/min (>60); Estimated Creatinine Clearance 85.42 ml/min; Glucose 272 mg/dL (74-106); Phosphorus 2.5 mg/dL (2.5-4.9); Sodium Level 137 mmol/L (136-145)
[2023-01-26] MEDS: Insulin Lispro 100 UNIT/ML INSULN.PEN SC ×5 (06:38→21:41)
[2023-01-26 06:58] LABS: Bedside Glucose 260 mg/dL (74-106)
--- NOTE | 2023-01-26 08:03 | PCM.PN.HOSP ---
Reason for Visit Reason for Visit: Diagnoses Type 2 diabetes mellitus without complications (01/24/23) Obstructive sleep apnea (adult) (pediatric) (01/24/23) Cutaneous abscess of abdominal wall (01/24/23) Cutaneous abscess of groin (01/24/23) Cellulitis of abdominal wall (01/24/23) Calculus of kidney (01/24/23) Subjective Subjective Patient seen blood glucose control not optimal WBC count also trending up. Adjusted insulin level Case discussed with general surgery Objective Data Objective Data Vital Signs: Vital Signs Temp Pulse Resp BP Pulse Ox O2 Del Method O2 Flow Rate 97.7 F L 80 18 129/84 H 95 Room Air 2 01/26/23 05:01 01/26/23 05:01 01/26/23 05:01 01/26/23 05:01 01/26/23 05:01 01/26/23 05:01 01/25/23 04:00 Oxygen Flow Rate (L/min) 2 Oxygen Delivery Method Room Air Weight: 97.976 kg Body Mass Index (BMI) 35.9 Intake & Output: Intake and Output for Last 24 Hours 01/24/23 01/25/23 01/26/23 23:59 23:59 23:59 Intake Total 3248.34 / 3248.34 2230.42 / 2230.42 1583.33 / 1583.33 Output Total 400 / 400 1150 / 1450 825 / 825 Balance 2848.34 / 2848.34 1080.42 / 780.42 758.33 / 758.33 Lab / Micro Data 01/26/23 05:09 01/26/23 05:09 Labs: Laboratory Results - last 24 hr 01/25/23 06:50: WBC 23.4 H, RBC 5.06, Hgb 14.6, Hct 45.5, MCV 89.9, MCH 28.9, MCHC 32.1, RDW Std Deviation 47.2 H, RDW Coeff of July 14.2, Plt Count 330, MPV 10.6, Immature Gran % (Auto) 3.900 H, Neut % (Auto) 79.7 H, Lymph % (Auto) 7.9 L, [place] % (Auto) 8.1, Eos % (Auto) 0.1, Baso % (Auto) 0.3, Absolute Neuts (auto) 18.6 H, Absolute Lymphs (auto) 1.85, Nucleated RBC % 0, Differential Comment SCANNED, Diff Path Review July01/25/23 10:48: POC Glucose 304 H 01/25/23 14:59: WBC 22.2 H, RBC 4.80, Hgb 13.4, Hct 42.4, MCV 88.3, MCH 27.9, MCHC 31.6 L, RDW Std Deviation 45.4 H, RDW Coeff of July 14.0, Plt Count 346, MPV 10.3, Immature Gran % (Auto) 4.200 H, Neut % (Auto) 80.1 H, Lymph % (Auto) 8.3 L, [place] % (Auto) 6.4, Eos % (Auto) 0.4, Baso % (Auto) 0.6, Absolute Neuts (auto) 17.7 H, Absolute Lymphs (auto) 1.85, Nucleated RBC % 0 01/25/23 16:07: POC Glucose 276 H 01/25/23 18:00: Vancomycin Trough 12.5 01/25/23 21:03: POC Glucose 256 H 01/26/23 05:09: WBC 19.5 H, RBC 4.70, Hgb 13.2, Hct 42.0, MCV 89.4, MCH 28.1, MCHC 31.4 L, RDW Std Deviation 46.4 H, RDW Coeff of July 14.0, Plt Count 330, MPV 10.3, Immature Gran % (Auto) 4.800 H, Neut % (Auto) 76.5 H, Lymph % (Auto) 9.8 L, [place] % (Auto) 6.9, Eos % (Auto) 1.1, Baso % (Auto) 0.9, Absolute Neuts (auto) 14.9 H, Absolute Lymphs (auto) 1.92, Nucleated RBC % 0, Sodium 137, Potassium 4.0, Chloride 105, Carbon Dioxide 24.0, Anion Gap 8, BUN 12, Creatinine 0.75, Estim Creat Clear Calc 85.42, Est GFR (MDRD) Af Amer 135, Est GFR (MDRD) Non-Af 112, BUN/Creatinine Ratio 16.1, Glucose 272 H, Calcium 7.5 L, Phosphorus 2.5, Magnesium 2.0 01/26/23 06:36: POC Glucose 260 H Micro: Microbiology 01/24/23 14:58 Wound Abcess - Aerobic & Anaerobic Swabs Gram Stain - Final 01/24/23 14:58 Wound Abcess - Aerobic & Anaerobic Swabs Wound Culture - Final Streptococcus agalactiae (B) 01/24/23 14:56 Tissue - Abdominal Gram Stain - Final 01/24/23 14:56 Tissue - Abdominal Wound Culture - Preliminary Streptococcus agalactiae (B) Gram positive organism Physical Exam Narrative GENERAL: cooperative HEENT: Atraumatic; normocephalic EYES; Anicteric, Normal Conjunctiva NECK; supple, normal thyroid, RESPIRATORY: Diminished to auscultation CARDIOVASCULAR: Regular S1 S2, GI: soft, normoactive bowel sounds, : No Renal angle tenderness; EXTREMITIES: No edema, no clubbing, MUSCULOSKELETAL: Surgical dressing right groin NEURO: Awake; no lateralizing signs. SKIN: No Rash PSYCH; Flat affect Assessment & Plan Assessment/Plan (1) New onset type 2 diabetes mellitus: (2) RC (obstructive sleep apnea): (3) Kidney stones: (4) Abscess of right groin: PLAN: Plan Patient is a 67-year-old gentleman with history of diabetes mellitus type 2 admitted with right groin abscess underwent I&D by general surgery cultures sent 1. Right groin abscess ? Patient underwent I&D by general surgery on 01/24/2023 cultures sent wound subsequently packed awaiting results ? 01/26/2023 7 cultures positive for Streptococcus atelectatic a 2. New onset diabetes mellitus type 2 ? Hemoglobin A1c on admission was 10.9. Patient placed on Accu-Cheks before meals and at bedtime with sliding scale coverage as well as long-acting insulin with consultation placed to dietitian and diabetic education ? 01/26/2023; patient was started on long-acting insulin the day prior blood glucose control still not optimal adjusted dose and added scheduled Premeal short acting insulin in addition to sliding scale correction factor 3. Obstructive sleep apnea ? 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 Class II obesity with BMI of 35.9 ? Complicating care, Weight loss advised 5. DVT prophylaxis ? We will recommend low molecular weight heparin if no contraindication will defer decision to initiate to general surgery Time spent in the patient's overall evaluation,decision-making process, review of diagnostic data, adjustment of management, discussion with other providers, nursing nursing and ancillary staff involved in patient's care documentation, 50 Minutes Charges/Coding Visit Charges Inpatient E&M: 08872 Subs Hosp L3
[2023-01-26] MEDS: DAKIN'S SOL HALF STRENGTH (=0.25%) 1 APPLIC TOPICAL (08:04)
--- NOTE | 2023-01-26 08:40 | CASEMGMT ---
Attempted to find in network providers for pt insurance and was redirected to [employer]'s website but unable to put in local zip code. TC to Member services of [facility], spoke with Roro, she states there is no benefit for pt out of the state of [place] unless it is an emergency. Updated Krista GARY CM.
--- NOTE | 2023-01-26 08:46 | CASEMGMT ---
COOKIE KILGORE NOTE: COOKIE KILGORE spoke w/Lorie @ [facility] who states they are unable to do a one-time contract w/pt's insurance. Per Shawna wound nurse decision re: if pt will have a wound vac placed will not be made until Monday. If wound vac unable to be placed, then BID dressing changes will be needed. Sharad WILSON RN, CM
[2023-01-26 08:55] VITALS: BP 115/75; PULSE 88; RESP 14; TEMP 36.6; O2SAT 91
[2023-01-26] MEDS: Insulin Glargine-YFGN 100 UNIT/ML Pen 10 UNIT SC (08:57)
[2023-01-26] MEDS: Acetaminophen 500 MG Tablet 1000 MG PO ×2 (09:27→21:42)
[2023-01-26 10:00] VITALS: BP 111/75; PULSE 73; RESP 18; TEMP 3.3; TEMP 38; O2SAT 93
--- NOTE | 2023-01-26 10:11 | CASEMGMT ---
Addendum entered by Krista Noonan 01/26/23 16:48: informed this COOKIE KILGORE that she has completed paperwork for a Dr Yaya Vogt in [place] to see if he can get established as a new pt with him and they want to see if he can do telehealth visits and follow pt for HHC. She submitted the paperwork to Zachary who is the chief business officer. PH: [phone]. RN JAME placed call to Zachary. No answer. VM left for him to call QUOC Rocha RN, CM, on Mon to update her if Dr Vogt can accept pt, if they can do telehealth visits, and if he is willing to follow for HHC. Initially said she would not be able/willing to complete dressing changes @ home, should he not be able to have a wound vac placed. She states she has watched the wound nurse to it and she is now willing to learn. She states she would prefer to learn to do them instead of pt having to go to a SNF. Call received from [facility] requesting wound vac order. She was made aware that decision re: wound vac vs dressing changes would be made on Monday. She requested additional information/complete referral packet be faxed to [employer] @ [phone]. Same done at this time. Original Note: COOKIE KILGORE NOTE: Call to [facility] and was informed that [facility] (PH: [phone]) is the company that handles authorization for HHC's. Call to [facility] and spoke w/Cheryl. She requests C order be faxed to them @ [phone] and she states they will assign a [facility] agency for pt that is in pt's geographical location and under his umbrella/plan. Pt made aware of the above. Pt states if wound vac is not applied and he requires dressing changes instead that his would not be willing/able to do them @ home, so he would need to go to a SNF. [facility] order for SN faxed to [facility] at this time. Phone number for this COOKIE KILGORE for call back/follow-up today was provided and also provided them with Josefina GARY CM phone number for follow-up after today. Sharad WILSON RN, CM
[2023-01-26 10:42] LABS: Pathologist Review Reviewed
[2023-01-26 10:48] LABS: Bedside Glucose 322 mg/dL (74-106)
--- NOTE | 2023-01-26 11:03 | PN.SURG_ITS ---
Subjective Subjective Patient seen and examined during AM rounds. Is found resting in bed. He states that he is very surprised with how little discomfort he has from his wound despite seeing the pictures that suggest he should be more uncomfortable. He reports that he has ambulated in the hallways and took 2 laps last evening. Objective Data Objective Data Vital Signs: Vital Signs Temp Pulse Resp BP Pulse Ox O2 Del Method O2 Flow Rate 38 F L 73 18 111/75 93 Room Air 2 01/26/23 10:00 01/26/23 10:00 01/26/23 10:00 01/26/23 10:00 01/26/23 10:00 01/26/23 10:00 01/25/23 04:00 Oxygen Flow Rate (L/min) 2 Oxygen Delivery Method Room Air Weight: 216 lb 0.002 oz Body Mass Index (BMI) 35.9 Intake & Output: Intake and Output for Last 24 Hours 01/24/23 01/25/23 01/26/23 23:59 23:59 23:59 Intake Total 3248.34 / 3248.34 2230.42 / 2230.42 2083.33 / 2083.33 Output Total 400 / 400 1150 / 1450 1025 / 1025 Balance 2848.34 / 2848.34 1080.42 / 780.42 1058.33 / 1058.33 Lab / Micro Data 01/26/23 05:09 01/26/23 05:09 Labs: Laboratory Results - last 24 hr 01/24/23 08:25: Diff Path Review Reviewed 01/25/23 10:48: POC Glucose 304 H 01/25/23 14:59: WBC 22.2 H, RBC 4.80, Hgb 13.4, Hct 42.4, MCV 88.3, MCH 27.9, MCHC 31.6 L, RDW Std Deviation 45.4 H, RDW Coeff of July 14.0, Plt Count 346, MPV 10.3, Immature Gran % (Auto) 4.200 H, Neut % (Auto) 80.1 H, Lymph % (Auto) 8.3 L , [place] % (Auto) 6.4, Eos % (Auto) 0.4, Baso % (Auto) 0.6, Absolute Neuts (auto) 17.7 H, Absolute Lymphs (auto) 1.85, Nucleated RBC % 0 01/25/23 16:07: POC Glucose 276 H 01/25/23 18:00: Vancomycin Trough 12.5 01/25/23 21:03: POC Glucose 256 H 01/26/23 05:09: WBC 19.5 H, RBC 4.70, Hgb 13.2, Hct 42.0, MCV 89.4, MCH 28.1, MCHC 31.4 L, RDW Std Deviation 46.4 H, RDW Coeff of July 14.0, Plt Count 330, MPV 10.3, Immature Gran % (Auto) 4.800 H, Neut % (Auto) 76.5 H, Lymph % (Auto) 9.8 L , [place] % (Auto) 6.9, Eos % (Auto) 1.1, Baso % (Auto) 0.9, Absolute Neuts (auto) 14.9 H, Absolute Lymphs (auto) 1.92, Nucleated RBC % 0, Sodium 137, Potassium 4.0, Chloride 105, Carbon Dioxide 24.0, Anion Gap 8, BUN 12, Creatinine 0.75, Estim Creat Clear Calc 85.42, Est GFR (MDRD) Af Amer 135, Est GFR (MDRD) Non-Af 112, BUN/Creatinine Ratio 16.1, Glucose 272 H, Calcium 7.5 L, Phosphorus 2.5, Magnesium 2.0 01/26/23 06:36: POC Glucose 260 H 01/26/23 10:27: POC Glucose 322 H Micro: Microbiology 01/24/23 14:58 Wound Abcess - Aerobic & Anaerobic Swabs Gram Stain - Final 01/24/23 14:58 Wound Abcess - Aerobic & Anaerobic Swabs Wound Culture - Fin al Streptococcus agalactiae (B) 01/24/23 14:56 Tissue - Abdominal Gram Stain - Final 01/24/23 14:56 Tissue - Abdominal Wound Culture - Preliminary Streptococcus agalactiae (B) Gram positive organism Physical Exam Const oriented x3 and no apparent distress GI GI Narrative: Patient with modestly improved appearance of his right lower abdominal wall wound and some softening of his mons secondary to cellulitis. There is just stranding of some necrotic debris but no focal collections. There do not appear to be any undrained loculations. I have examined both sides of undermining in the scrotum as well as under the abdominal wall flap and do not find any concern for persistent bacterial dissection. Assessment & Plan Assessment/Plan (1) Abscess of abdominal wall: PLAN: Patient is postoperative day 2 from operative incision and drainage with limited debridement for large abdominal wall abscess. Labs were reviewed. WBC has decreased from 23 yesterday to 19.5 today. HGB A1C was 10.9 Continue empiric IV antibiotics Patient newly diagnosed diabetic and blood sugars remain north of 200. I have discussed further tightening of insulin regimen with hospitalist service to try to bring these under better control. Wound is overall stable today in appearance, but patient's laboratory is largely near what his intake laboratories were so I am reluctant to consider transition to wet-to-dry's with saline soaked gauzes. Instead I would like to continue [place] soaked gauzes today and plan for transition to saline soaked wet-to-dry's over the weekend with possible transition to a wound VAC early next week. (2) Abscess of right groin: Charges/Coding Visit Charges Inpatient E&M: 09829 Subs Hosp L2
[2023-01-26] MEDS: 0.9% Normal Saline (1000mL) 1,000 ML 50 ML IV (11:06)
[2023-01-26] MEDS: Insulin Glargine-YFGN 100 UNIT/ML Pen 20 UNIT SC (11:50)
[2023-01-26 17:07] LABS: Bedside Glucose 210 mg/dL (74-106)
[2023-01-26 19:48] LABS: Vancomycin, Trough Level 14.7 ug/mL (5.0-15.0)
--- NOTE | 2023-01-26 19:56 | PCM.RX.CS ---
Consult Antibiotic Management Pharmacy has been consulted to manage selected antiobiotic: Vancomycin Type of Intervention Type of Consult: Follow-up Suspected Infection Suspected Infection: Skin/Soft tissue Prior Doses of Antibiotics Prior Doses of Antibiotics Received/Current Regimen: Vancomycin 1.25 grams 01/25 @ 2044, 01/26@ 0317, 01/26 @ 1149 Labs Labs: Sodium 137 mmol/L (136-145) 01/26/23 05:09 Potassium 4.0 mmol/L (3.5-5.1) 01/26/23 05:09 Chloride 105 mmol/L (98-107) 01/26/23 05:09 Carbon Dioxide 24.0 mmol/L (21.0-32.0) 01/26/23 05:09 Anion Gap 8 (5-15) 01/26/23 05:09 BUN 12 mg/dL (7-18) 01/26/23 05:09 Creatinine 0.75 mg/dL (0.70-1.30) 01/26/23 05:09 Est GFR (MDRD) Af Amer 135 mL/min (>60) 01/26/23 05:09 Est GFR (MDRD) Non-Af 112 mL/min (>60) 01/26/23 05:09 BUN/Creatinine Ratio 16.1 RATIO (10-20) 01/26/23 05:09 Glucose 272 mg/dL (74-106) H 01/26/23 05:09 Vancomycin Trough 14.7 ug/mL (5.0-15.0) 01/26/23 19:05 Microbiology Microbiology: Microbiology 01/24/23 14:58 Wound Abcess - Aerobic & Anaerobic Swabs Gram Stain - Final 01/24/23 14:58 Wound Abcess - Aerobic & Anaerobic Swabs Wound Culture - Final Streptococcus agalactiae (B) 01/24/23 14:56 Tissue - Abdominal Gram Stain - Final 01/24/23 14:56 Tissue - Abdominal Wound Culture - Preliminary Streptococcus agalactiae (B) Gram positive organism Dosing Weight Weight used for dosin.98 kg Estimated Creatinine Clearance Estimated Creatinine Clearance: ~104 Goal Trough Goal Trough: 15-20 mcg/mL Pharmacy Plan for Drug Dosing Pharmacy Plan for Drug Dosing: Vancomycin trough returned at 14.7, 7.25 hour level, will increase dosing to 1500 mg IV Q8H with a trough prior to the 4th dose. Pharmacy Service will continue to monitor and adjust dosing as required. Follow-Up Labs Follow-Up Labs: Trough: Vancomycin Date/Time Labs Ordered Labs to be done on [date and time ordered]: 01/27 @ 1264
[2023-01-26] MEDS: Vancomycin Trough/Random Due 1 LAB MC (20:21)
[2023-01-26] MEDS: Vancomycin HCl 1,500 MG in 0.9% Normal Saline (500mL Bag) 500 ML 250 MG IV (20:23)
[2023-01-26 22:10] LABS: Bedside Glucose 248 mg/dL (74-106)
[2023-01-26 22:30] VITALS: BP 127/77; PULSE 81; RESP 16; TEMP 36.4; O2SAT 92
[2023-01-27] MEDS: Vancomycin HCl 1,500 MG in 0.9% Normal Saline (500mL Bag) 500 ML 250 MG IV (04:03)
[2023-01-27 04:04] VITALS: BP 131/82; PULSE 68; RESP 16; TEMP 36.1; O2SAT 92
[2023-01-27] MEDS: Piperacil/Tazobactam 3.375 GM in 0.9% Normal Saline (50mL MB+) 50 ML IV (04:59)
[2023-01-27] MEDS: Clindamycin 600 MG/50 ML BAG 100 MG IV (06:19)
[2023-01-27] MEDS: Acetaminophen 500 MG Tablet 1000 MG PO ×2 (06:20→21:01)
[2023-01-27] MEDS: Insulin Lispro 100 UNIT/ML INSULN.PEN SC ×5 (06:23→21:01)
[2023-01-27 06:45] LABS: Bedside Glucose 248 mg/dL (74-106)
[2023-01-27 06:54] LABS: Absolute Lymphocyte Count 1.96 X10^3/uL (0.83-4.51); Absolute Neutrophil Count 10.3 X10^3/uL (2.0-7.7); Basophil# 0.04 X10^3/uL; Basophil% 0.3 % (0-1); Eosinophil# 0.35 X10^3/uL; Eosinophils% 2.5 % (0-5); Hematocrit 43.6 % (40-54); Hemoglobin 13.3 g/dL (13.0-16.5); Lymphocyte # 1.96 X10^3/ul (0.83-4.51); Lymphocyte % 13.9 % (19-41); Mean Corp Hgb Conc 30.5 g/dL (32-36); Mean Corpuscular Hgb 27.7 pg (27.0-32.0); Mean Corpuscular Volume 90.8 fL (80-94); Mean Platelet Vol. 10.3 fl (6.2-12.0); Monocyte# 0.81 X10^3/uL; Monocyte% 5.7 % (0-10); NRBC Flagged by Analyzer 0 % (0-5); Neutrophil # 10.32 X10^3/uL (2.7-7.7); Neutrophil % 73.3 % (47-70); POSITIVE MORPHOLOGY YES; Platelet Count 336 K/mm3 (150-450); RBC Distribution Width CV 14.1 % (11.6-14.6); RBC Distribution Width SD 47.7 fl (35.1-43.9); White Blood Count 14.1 K/mm3 (4.4-11.0)
[2023-01-27 07:01] LABS: Differential Indicated SCAN CRITERIA MET
[2023-01-27 07:15] LABS: Differential Comment SCANNED
[2023-01-27] MEDS: 0.9% Normal Saline (1000mL) 1,000 ML 50 ML IV (08:02)
[2023-01-27] MEDS: Insulin Glargine-YFGN 100 UNIT/ML Pen 20 UNIT SC (08:02)
[2023-01-27] MEDS: DAKIN'S SOL HALF STRENGTH (=0.25%) 1 APPLIC TOPICAL (08:03)
[2023-01-27 08:21] LABS: Anion Gap 3 (5-15); BUN 12 mg/dL (7-18); BUN/Creat Ratio 16.7 RATIO (10-20); Calcium,Total 8.7 mg/dL (8.5-10.1); Chloride 106 mmol/L (98-107); Creatinine, Serum 0.72 mg/dL (0.70-1.30); EST Glomerular Filtration Rate 117 mL/min (>60); Est Glom Filt Rate - Afr Amer 141 mL/min (>60); Estimated Creatinine Clearance 88.98 ml/min; Glucose 267 mg/dL (74-106); Potassium 4.2 mmol/L (3.5-5.1); Sodium Level 136 mmol/L (136-145)
[2023-01-27] MEDS: HYDROmorphone 0.5 MG/0.5 ML SYRINGE IV ×2 (08:24→14:25)
[2023-01-27] MEDS: 0.9% Saline Lock 10 ML Syringe IV ×3 (08:24→23:47)
[2023-01-27 09:00] VITALS: BP 121/73; PULSE 72; RESP 12; TEMP 36.9; O2SAT 92
--- NOTE | 2023-01-27 09:08 | PCM.PN.HOSP ---
Reason for Visit Reason for Visit: Diagnoses Type 2 diabetes mellitus without complications (01/24/23) Obstructive sleep apnea (adult) (pediatric) (01/24/23) Cutaneous abscess of abdominal wall (01/24/23) Cutaneous abscess of groin (01/24/23) Cellulitis of abdominal wall (01/24/23) Calculus of kidney (01/24/23) Subjective Subjective Patient seen WBC count trending down blood glucose remain uncontrolled subsequent adjustment made to his insulin regimen Objective Data Objective Data Vital Signs: Vital Signs Temp Pulse Resp BP Pulse Ox O2 Del Method O2 Flow Rate 97.0 F L 68 16 131/82 H 92 Room Air 2 01/27/23 04:04 01/27/23 04:04 01/27/23 04:04 01/27/23 04:04 01/27/23 04:04 01/27/23 04:04 01/25/23 04:00 Oxygen Flow Rate (L/min) 2 Oxygen Delivery Method Room Air Weight: 97.976 kg Body Mass Index (BMI) 35.9 Intake & Output: Intake and Output for Last 24 Hours 01/25/23 01/26/23 01/27/23 23:59 23:59 23:59 Intake Total 2230.42 / 2230.42 3688.33 / 4288.33 2580 / 2580 Output Total 1150 / 1450 1225 / 1775 800 / 800 Balance 1080.42 / 780.42 2463.33 / 2513.33 1780 / 1780 Lab / Micro Data 01/27/23 06:35 01/27/23 06:35 Labs: Laboratory Results - last 24 hr 01/24/23 08:25: Diff Path Review Reviewed 01/26/23 10:27: POC Glucose 322 H 01/26/23 16:41: POC Glucose 210 H 01/26/23 19:05: Vancomycin Trough 14.7 01/26/23 21:39: POC Glucose 248 H 01/27/23 06:22: POC Glucose 248 H 01/27/23 06:35: WBC 14.1 H, RBC 4.80, Hgb 13.3, Hct 43.6, MCV 90.8, MCH 27.7, MCHC 30.5 L, RDW Std Deviation 47.7 H, RDW Coeff of July 14.1, Plt Count 336, MPV 10.3, Immature Gran % (Auto) 4.300 H, Neut % (Auto) 73.3 H, Lymph % (Auto) 13.9 L, [place] % (Auto) 5.7, Eos % (Auto) 2.5, Baso % (Auto) 0.3, Absolute Neuts (auto) 10.3 H, Absolute Lymphs (auto) 1.96, Nucleated RBC % 0, Differential Comment SCANNED, Sodium 136, Potassium 4.2, Chloride 106, Carbon Dioxide 27.0, Anion Gap 3 L, BUN 12, Creatinine 0.72, Estim Creat Clear Calc 88.98, Est GFR (MDRD) Af Amer 141, Est GFR (MDRD) Non-Af 117, BUN/Creatinine Ratio 16.7, Glucose 267 H, Calcium 8.7 Micro: Microbiology 01/24/23 17:23 Blood Culture (Wb) - Left Wrist Blood Culture - Preliminary No growth in 48 hours. 01/24/23 17:15 Blood Culture (Wb) - Anticubital Left Blood Culture - Preliminary No growth in 48 hours. 01/24/23 14:58 Wound Abcess - Aerobic & Anaerobic Swabs Gram Stain - Final 01/24/23 14:58 Wound Abcess - Aerobic & Anaerobic Swabs Wound Culture - Final Streptococcus agalactiae (B) 01/24/23 14:56 Tissue - Abdominal Gram Stain - Final 01/24/23 14:56 Tissue - Abdominal Wound Culture - Preliminary Streptococcus agalactiae (B) Gram positive organism Physical Exam Narrative GENERAL: cooperative HEENT: Atraumatic; normocephalic EYES; Anicteric, Normal Conjunctiva NECK; supple, normal thyroid, RESPIRATORY: Diminished to auscultation CARDIOVASCULAR: Regular S1 S2, GI: soft, normoactive bowel sounds, : No Renal angle tenderness; EXTREMITIES: No edema, no clubbing, MUSCULOSKELETAL: Surgical dressing right groin NEURO: Awake; no lateralizing signs. SKIN: No Rash PSYCH; Flat affect Assessment & Plan Assessment/Plan (1) New onset type 2 diabetes mellitus: (2) RC (obstructive sleep apnea): (3) Kidney stones: (4) Abscess of right groin: PLAN: Plan Patient is a 67-year-old gentleman with history of diabetes mellitus type 2 admitted with right groin abscess underwent I&D by general surgery cultures sent 1. Right groin abscess ? Patient underwent I&D by general surgery on 01/24/2023 cultures sent wound subsequently packed awaiting results ? 01/26/2023 7 cultures positive for Streptococcus atelectatic ? 01/27/2023: Patient WBC count trending down 2. Diabetes mellitus type II ? Hemoglobin A1c on admission was 10.9. Patient placed on Accu-Cheks before meals and at bedtime with sliding scale coverage as well as long-acting insulin with consultation placed to dietitian and diabetic education ? 01/26/2023; patient was started on long-acting insulin the day prior blood glucose control still not optimal adjusted dose and added scheduled Premeal short acting insulin in addition to sliding scale correction factor ? 01/27/2023 patient blood glucose levels still not optimal subsequent adjustment made to his insulin regimen 3. Obstructive sleep apnea ? Patient was followed by pulmonary medicine, however PAP therapy was not initiated after patient was lost to follow-up patient encouraged to schedule an appointment with his spiritual advisor for reevaluation 4. Class II obesity with BMI of 35.9 ? Complicating care, Weight loss advised 5. DVT prophylaxis ? We will recommend low molecular weight heparin if no contraindication will defer decision to initiate to general surgery Time spent in the patient's overall evaluation,decision-making process, review of diagnostic data, adjustment of management, discussion with other providers, nursing nursing and ancillary staff involved in patient's care documentation, 40 Minutes Charges/Coding Visit Charges Inpatient E&M: 50098 Subs Hosp L2
--- NOTE | 2023-01-27 09:19 | PCM.PN.SRG ---
Subjective Subjective Patient seen and examined during AM rounds. We performed his a.m. dressing change after premedication. He continues to report that he is feeling more comfortable with his diabetic education and is resolute about improving his diet to see that he does not have a recurrence of his present condition. He also reports that he is making changes to his schedule to allow for ongoing treatment here in [facility] [place]. Objective Data Objective Data Vital Signs: Vital Signs Temp Pulse Resp BP Pulse Ox O2 Del Method O2 Flow Rate 97.0 F L 68 16 131/82 H 92 Room Air 2 01/27/23 04:04 01/27/23 04:04 01/27/23 04:04 01/27/23 04:04 01/27/23 04:04 01/27/23 04:04 01/25/23 04:00 Oxygen Flow Rate (L/min) 2 Oxygen Delivery Method Room Air Weight: 216 lb 0.002 oz Body Mass Index (BMI) 35.9 Intake & Output: Intake and Output for Last 24 Hours 01/25/23 01/26/23 01/27/23 23:59 23:59 23:59 Intake Total 2230.42 / 2230.42 3688.33 / 4288.33 2630 / 2630 Output Total 1150 / 1450 1225 / 1775 800 / 800 Balance 1080.42 / 780.42 2463.33 / 2513.33 1830 / 1830 Lab / Micro Data 01/27/23 06:35 01/27/23 06:35 Labs: Laboratory Results - last 24 hr 01/24/23 08:25: Diff Path Review Reviewed 01/26/23 10:27: POC Glucose 322 H 01/26/23 16:41: POC Glucose 210 H 01/26/23 19:05: Vancomycin Trough 14.7 01/26/23 21:39: POC Glucose 248 H 01/27/23 06:22: POC Glucose 248 H 01/27/23 06:35: WBC 14.1 H, RBC 4.80, Hgb 13.3, Hct 43.6, MCV 90.8, MCH 27.7, MCHC 30.5 L, RDW Std Deviation 47.7 H, RDW Coeff of July 14.1, Plt Count 336, MPV 10.3, Immature Gran % (Auto) 4.300 H, Neut % (Auto) 73.3 H, Lymph % (Auto) 13.9 L, [place] % (Auto) 5.7, Eos % (Auto) 2.5, Baso % (Auto) 0.3, Absolute Neuts (auto) 10.3 H, Absolute Lymphs (auto) 1.96, Nucleated RBC % 0, Differential Comment SCANNED, Sodium 136, Potassium 4.2, Chloride 106, Carbon Dioxide 27.0, Anion Gap 3 L, BUN 12, Creatinine 0.72, Estim Creat Clear Calc 88.98, Est GFR (MDRD) Af Amer 141, Est GFR (MDRD) Non-Af 117, BUN/Creatinine Ratio 16.7, Glucose 267 H, Calcium 8.7 Micro: Microbiology 01/24/23 14:56 Tissue - Abdominal Gram Stain - Final 01/24/23 14:56 Tissue - Abdominal Wound Culture - Preliminary Streptococcus agalactiae (B) Staphylococcus species 01/24/23 17:23 Blood Culture (Wb) - Left Wrist Blood Culture - Preliminary No growth in 48 hours. 01/24/23 17:15 Blood Culture (Wb) - Anticubital Left Blood Culture - Preliminary No growth in 48 hours. 01/24/23 14:58 Wound Abcess - Aerobic & Anaerobic Swabs Gram Stain - Final 01/24/23 14:58 Wound Abcess - Aerobic & Anaerobic Swabs Wound Culture - Final Streptococcus agalactiae (B) Physical Exam Const oriented x3 and no apparent distress Resp normal respiratory effort GI GI Narrative: Patient with further modestly improved appearance of his right lower abdominal wall wound and some softening of his mons secondary to cellulitis. I undertook a limited debridement at bedside of a necrotic lobule of fat laterally as well as performed limited curettage more medially where there was some necrotic residue against patient's medial wound edge. Total volume of tissue removed was approximately 4 cm?. The undermining areas cephalad and caudad were probed but there do not appear to be any undrained loculations. Assessment & Plan Assessment/Plan (1) Abscess of abdominal wall: PLAN: Patient is postoperative day 3 from operative incision and drainage with limited debridement for large abdominal wall abscess. Labs were reviewed. WBC has decreased from 19.5-14 today. HGB A1C was 10.9 Continue empiric IV antibiotics, but we will look to narrow as patient's cultures are finalized?preliminary culture showed growth of strep agalactiae Patient newly diagnosed diabetic and blood sugars remain north of 200. Appreciate hospitalist input to continue to bring these under better control. Wound is improved today in appearance, but patient's white count does remain elevated. Therefore I have transitioned him to wet-to-dry dressings with saline?moistened gauze and will consider placement of a negative pressure wound VAC if his white count further normalizes tomorrow (2) Abscess of right groin: Charges/Coding Visit Charges Inpatient E&M: 15924 Subs Hosp L2
[2023-01-27] MEDS: Insulin Lispro 100 UNIT/ML INSULN.PEN 10 UNIT SC ×2 (11:09→17:21)
[2023-01-27] MEDS: Ampicillin/Sulbactam 3 GM in 0.9% Normal Saline (100mL MB+) 100 ML IV ×3 (11:16→23:46)
[2023-01-27 11:38] LABS: Bedside Glucose 245 mg/dL (74-106)
[2023-01-27] MEDS: Insulin Glargine-YFGN 100 UNIT/ML Pen 30 UNIT SC (17:23)
[2023-01-27 17:43] LABS: Bedside Glucose 160 mg/dL (74-106)
[2023-01-27 21:15] VITALS: BP 148/96; PULSE 70; RESP 16; TEMP 36.6; O2SAT 95
[2023-01-28 02:21] LABS: Bedside Glucose 176 mg/dL (74-106)
[2023-01-28 03:15] VITALS: BP 136/80; PULSE 72; RESP 16; TEMP 36.4; O2SAT 96
[2023-01-28] MEDS: 0.9% Saline Lock 10 ML Syringe IV (06:14)
[2023-01-28] MEDS: Ampicillin/Sulbactam 3 GM in 0.9% Normal Saline (100mL MB+) 100 ML IV ×4 (06:14→23:18)
[2023-01-28 08:20] LABS: Absolute Lymphocyte Count 1.93 X10^3/uL (0.83-4.51); Absolute Neutrophil Count 10.4 X10^3/uL (2.0-7.7); Basophil# 0.11 X10^3/uL; Basophil% 0.8 % (0-1); Eosinophil# 0.42 X10^3/uL; Hematocrit 44.3 % (40-54); Hemoglobin 13.6 g/dL (13.0-16.5); Lymphocyte # 1.93 X10^3/ul (0.83-4.51); Lymphocyte % 13.7 % (19-41); Mean Corp Hgb Conc 30.7 g/dL (32-36); Mean Corpuscular Hgb 27.4 pg (27.0-32.0); Mean Corpuscular Volume 89.1 fL (80-94); Monocyte# 0.85 X10^3/uL; NRBC Flagged by Analyzer 0 % (0-5); Neutrophil # 10.39 X10^3/uL (2.7-7.7); Platelet Count 428 K/mm3 (150-450); RBC Distribution Width SD 45.1 fl (35.1-43.9); Red Blood Count 4.97 M/mm3 (4.6-6.2); White Blood Count 14.1 K/mm3 (4.4-11.0)
[2023-01-28] MEDS: Insulin Lispro 100 UNIT/ML INSULN.PEN 10 UNIT SC (08:27)
[2023-01-28] MEDS: Insulin Lispro 100 UNIT/ML INSULN.PEN SC (08:27)
[2023-01-28] MEDS: Insulin Glargine-YFGN 100 UNIT/ML Pen 30 UNIT SC (08:28)
--- NOTE | 2023-01-28 08:29 | PCM.PN.SRG ---
Subjective Subjective Patient seen and examined during AM rounds. He is found resting in a chair out of bed. He reports that he feels well but is nervous about possible wound VAC application. He denies any new pain or symptoms. Objective Data Objective Data Vital Signs: Vital Signs Temp Pulse Resp BP Pulse Ox O2 Del Method O2 Flow Rate 97.5 F L 72 16 136/80 H 96 Room Air 2 01/28/23 03:15 01/28/23 03:15 01/28/23 03:15 01/28/23 03:15 01/28/23 03:15 01/28/23 03:15 01/25/23 04:00 Oxygen Flow Rate (L/min) 2 Oxygen Delivery Method Room Air Weight: 216 lb 0.002 oz Body Mass Index (BMI) 35.9 Intake & Output: Intake and Output for Last 24 Hours 01/26/23 01/27/23 01/28/23 23:59 23:59 23:59 Intake Total 3688.33 / 4288.33 3454 / 3454 1112 / 1112 Output Total 1225 / 1775 1200 / 1200 Balance 2463.33 / 2513.33 2254 / 2254 1112 / 1112 Lab / Micro Data 01/28/23 08:02 01/28/23 08:02 Labs: Laboratory Results - last 24 hr 01/27/23 11:06: POC Glucose 245 H 01/27/23 17:19: POC Glucose 160 H 01/27/23 21:00: POC Glucose 176 H 01/28/23 08:02: WBC 14.1 H, RBC 4.97, Hgb 13.6, Hct 44.3, MCV 89.1, MCH 27.4, MCHC 30.7 L, RDW Std Deviation 45.1 H, RDW Coeff of July 14.0, Plt Count 428, MPV 10.0, Immature Gran % (Auto) 2.500 H, Neut % (Auto) 74.0 H, Lymph % (Auto) 13.7 L, [place] % (Auto) 6.0, Eos % (Auto) 3.0, Baso % (Auto) 0.8, Absolute Neuts (auto) 10.4 H, Absolute Lymphs (auto) 1.93, Nucleated RBC % 0 Micro: Microbiology 01/24/23 14:56 Tissue - Abdominal Gram Stain - Final 01/24/23 14:56 Tissue - Abdominal Wound Culture - Final Streptococcus agalactiae (B) Staphylococcus epidermidis 01/24/23 14:58 Wound Abcess - Aerobic & Anaerobic Swabs Gram Stain - Final 01/24/23 14:58 Wound Abcess - Aerobic & Anaerobic Swabs Wound Culture - Final Streptococcus agalactiae (B) 01/24/23 14:58 Wound Abcess - Aerobic & Anaerobic Swabs Anaerobic Culture - Preliminary 01/24/23 17:23 Blood Culture (Wb) - Left Wrist Blood Culture - Preliminary No growth in 48 hours. 01/24/23 17:15 Blood Culture (Wb) - Anticubital Left Blood Culture - Preliminary No growth in 48 hours. Physical Exam Const oriented x3 and no apparent distress Resp normal respiratory effort GI GI Narrative: Patient with further modestly improved appearance of his right lower abdominal wall wound and some further softening of his mons secondary to cellulitis. Overall patient's wound bed appears viable today and there is some granulation tissue beginning. The undermining areas cephalad and caudad were probed but there do not appear to be any undrained loculations. Given this reassuring appearance I placed a wound VAC using a large black sponge cut to fit the majority of the patient's wound, however, to increase the depth of the packing I did require approximately half of a small spiral sponge. The [place] pad was offset the additional sponge to a suction point along patient's right hip. Final seal check showed an adequate seal with a small air leak such that the VAC was still in the green. VAC settings were -125 mmHg, low, continuous Assessment & Plan Assessment/Plan (1) Abscess of abdominal wall: PLAN: Patient is postoperative day 4 from operative incision and drainage with limited debridement for large abdominal wall abscess. Labs were reviewed. WBC has stabilize 14->14 today. Patient remains afebrile. HGB A1C was 10.9 Antibiotics narrowed to Unasyn after conferencing with pharmacy over patient's cultures positive for strep agalactiae. Patient newly diagnosed diabetic and blood sugars are now improved and consistently under 200. Wound is somewhat improved today in appearance and his white blood cell count remained stable so in the interest of decreasing the dressing changes and trying to better eliminate static fluid in the point of undermining I did place him in a negative pressure wound VAC therapy dressing. Full details are given in the exam section of this note and a adequate seal was confirmed with the seal check function on the VAC (2) Abscess of right groin: Charges/Coding Visit Charges Inpatient E&M: 42792 Subs Hosp L2
[2023-01-28 08:46] LABS: Anion Gap 5 (5-15); BUN 9 mg/dL (7-18); BUN/Creat Ratio 14.3 RATIO (10-20); Calcium,Total 9.1 mg/dL (8.5-10.1); Chloride 106 mmol/L (98-107); Creatinine, Serum 0.63 mg/dL (0.70-1.30); EST Glomerular Filtration Rate 136 mL/min (>60); Est Glom Filt Rate - Afr Amer 165 mL/min (>60); Estimated Creatinine Clearance 101.69 ml/min; Glucose 215 mg/dL (74-106); Potassium 4.2 mmol/L (3.5-5.1); Sodium Level 137 mmol/L (136-145)
[2023-01-28 08:50] LABS: Bedside Glucose 220 mg/dL (74-106)
[2023-01-28 09:56] VITALS: BP 151/76; PULSE 70; RESP 16; TEMP 36.6; O2SAT 97
--- NOTE | 2023-01-28 10:04 | PN.HOSP_ITS ---
Reason for Visit Reason for Visit: Diagnoses Type 2 diabetes mellitus without complications (01/24/23) Obstructive sleep apnea (adult) (pediatric) (01/24/23) Cutaneous abscess of abdominal wall (01/24/23) Cutaneous abscess of groin (01/24/23) Cellulitis of abdominal wall (01/24/23) Calculus of kidney (01/24/23) Subjective Subjective Patient seen plan is for patient to undergo wound VAC placement. Blood glucose levels continue to improve subsequent adjustment made Objective Data Objective Data Vital Signs: Vital Signs Temp Pulse Resp BP Pulse Ox O2 Del Method O2 Flow Rate 97.8 F 70 16 151/76 H 97 Room Air 2 01/28/23 09:56 01/28/23 09:56 01/28/23 09:56 01/28/23 09:56 01/28/23 09:56 01/28/23 09:56 01/25/23 04:00 Oxygen Flow Rate (L/min) 2 Oxygen Delivery Method Room Air Weight: 97.976 kg Body Mass Index (BMI) 35.9 Intake & Output: Intake and Output for Last 24 Hours 01/26/23 01/27/23 01/28/23 23:59 23:59 23:59 Intake Total 3688.33 / 4288.33 3454 / 3454 1224 / 1224 Output Total 1225 / 1775 1200 / 1200 Balance 2463.33 / 2513.33 2254 / 2254 1224 / 1224 Lab / Micro Data 01/28/23 08:02 01/28/23 08:02 Labs: Laboratory Results - last 24 hr 01/27/23 11:06: POC Glucose 245 H 01/27/23 17:19: POC Glucose 160 H 01/27/23 21:00: POC Glucose 176 H 01/28/23 08:02: WBC 14.1 H, RBC 4.97, Hgb 13.6, Hct 44.3, MCV 89.1, MCH 27.4, MCHC 30.7 L, RDW Std Deviation 45.1 H, RDW Coeff of July 14.0, Plt Count 428, MPV 10.0, Immature Gran % (Auto) 2.500 H, Neut % (Auto) 74.0 H, Lymph % (Auto) 13.7 L, [place] % (Auto) 6.0, Eos % (Auto) 3.0, Baso % (Auto) 0.8, Absolute Neuts (auto) 10.4 H, Absolute Lymphs (auto) 1.93, Nucleated RBC % 0, Sodium 137, Potassium 4.2, Chloride 106, Carbon Dioxide 26.0, Anion Gap 5, BUN 9, Creatinine 0.63 L, Estim Creat Clear Calc 101.69, Est GFR (MDRD) Af Amer 165, Est GFR (MDRD) Non-Af 136, BUN/Creatinine Ratio 14.3, Glucose 215 H, Calcium 9.1 01/28/23 08:24: POC Glucose 220 H Micro: Microbiology 01/24/23 14:56 Tissue - Abdominal Gram Stain - Final 01/24/23 14:56 Tissue - Abdominal Wound Culture - Final Streptococcus agalactiae (B) Staphylococcus epidermidis 01/24/23 14:58 Wound Abcess - Aerobic & Anaerobic Swabs Gram Stain - Final 01/24/23 14:58 Wound Abcess - Aerobic & Anaerobic Swabs Wound Culture - Final Streptococcus agalactiae (B) 01/24/23 14:58 Wound Abcess - Aerobic & Anaerobic Swabs Anaerobic Culture - Preliminary 01/24/23 17:23 Blood Culture (Wb) - Left Wrist Blood Culture - Preliminary No growth in 48 hours. 01/24/23 17:15 Blood Culture (Wb) - Anticubital Left Blood Culture - Preliminary No growth in 48 hours. Physical Exam Narrative GENERAL: cooperative HEENT: Atraumatic; normocephalic EYES; Anicteric, Normal Conjunctiva NECK; supple, normal thyroid, RESPIRATORY: Diminished to auscultation CARDIOVASCULAR: Regular S1 S2, GI: soft, normoactive bowel sounds, : No Renal angle tenderness; EXTREMITIES: No edema, no clubbing, MUSCULOSKELETAL: Surgical dressing right groin NEURO: Awake; no lateralizing signs. SKIN: No Rash PSYCH; Flat affect Assessment & Plan Assessment/Plan (1) New onset type 2 diabetes mellitus: (2) RC (obstructive sleep apnea): (3) Kidney stones: (4) Abscess of right groin: PLAN: Plan Patient is a 67-year-old gentleman with history of diabetes mellitus type 2 admitted with right groin abscess underwent I&D by general surgery cultures sent 1. Right groin abscess ? Patient underwent I&D by general surgery on 01/24/2023 cultures sent wound subsequently packed awaiting results ? 01/26/2023 7 cultures positive for Streptococcus atelectatic ? 01/27/2023: Patient WBC count trending down ? 01/28/2023 wound VAC placement planned for today 2. Diabetes mellitus type II ? Hemoglobin A1c on admission was 10.9. Patient placed on Accu-Cheks before meals and at bedtime with sliding scale coverage as well as long-acting insulin with consultation placed to dietitian and diabetic education ? 01/26/2023; patient was started on long-acting insulin the day prior blood glucose control still not optimal adjusted dose and added scheduled Premeal short acting insulin in addition to sliding scale correction factor ? 01/27/2023 patient blood glucose levels still not optimal subsequent adjustment made to his insulin regimen ? 01/28/2023 subsequent adjustment made to patient glucose regimen with goal to keep blood glucose level less than 200 3. Obstructive sleep apnea ? 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 Class II obesity with BMI of 35.9 ? Complicating care, Weight loss advised 5. DVT prophylaxis ? We will recommend low molecular weight heparin if no contraindication will defer decision to initiate to general surgery Time spent in the patient's overall evaluation,decision-making process, review of diagnostic data, adjustment of management, discussion with other providers, nursing nursing and ancillary staff involved in patient's care documentation, 40 Minutes Charges/Coding Visit Charges Inpatient E&M: 43840 [facility] Hosp L2
[2023-01-28] MEDS: Insulin Glargine-YFGN 100 UNIT/ML Pen 10 UNIT SC (10:05)
[2023-01-28 10:38] VITALS: BP 155/82; PULSE 71; RESP 16; TEMP 36.6; O2SAT 98
[2023-01-28] MEDS: HYDROmorphone 0.5 MG/0.5 ML SYRINGE IV (10:40)
[2023-01-28 12:26] LABS: Bedside Glucose 145 mg/dL (74-106)
[2023-01-28] MEDS: Insulin Lispro 100 UNIT/ML INSULN.PEN 15 UNIT SC ×2 (12:53→16:47)
[2023-01-28] MEDS: Miconazole Nitrate 43 GM Bottle 1 APPLIC TOPICAL ×2 (14:16→22:27)
[2023-01-28] MEDS: Acetaminophen 500 MG Tablet 1000 MG PO ×2 (14:17→23:21)
[2023-01-28 16:38] VITALS: BP 141/76; PULSE 68; RESP 16; TEMP 36.4; O2SAT 95
[2023-01-28] MEDS: Insulin Glargine-YFGN 100 UNIT/ML Pen 40 UNIT SC (16:47)
[2023-01-28 17:09] LABS: Bedside Glucose 138 mg/dL (74-106)
[2023-01-28 22:23] VITALS: BP 144/88; PULSE 76; RESP 18; TEMP 36.6; O2SAT 94
[2023-01-28 23:01] LABS: Bedside Glucose 100 mg/dL (74-106)
[2023-01-28] MEDS: Menthol/Lanolin/Calamine/Znox 113 GM Tube 1 APPLIC TOPICAL (23:15)
[2023-01-29 03:51] VITALS: BP 162/90; PULSE 70; RESP 18; TEMP 36.5; O2SAT 93
[2023-01-29] MEDS: Acetaminophen 500 MG Tablet 1000 MG PO (05:54)
[2023-01-29] MEDS: Ampicillin/Sulbactam 3 GM in 0.9% Normal Saline (100mL MB+) 100 ML IV ×3 (05:55→17:41)
[2023-01-29 06:16] LABS: Absolute Lymphocyte Count 1.82 X10^3/uL (0.83-4.51); Absolute Neutrophil Count 10.9 X10^3/uL (2.0-7.7); Basophil# 0.04 X10^3/uL; Basophil% 0.3 % (0-1); Eosinophil# 0.39 X10^3/uL; Eosinophils% 2.7 % (0-5); Hematocrit 43.6 % (40-54); Hemoglobin 13.7 g/dL (13.0-16.5); Lymphocyte # 1.82 X10^3/ul (0.83-4.51); Lymphocyte % 12.6 % (19-41); Mean Corp Hgb Conc 31.4 g/dL (32-36); Mean Corpuscular Hgb 28.1 pg (27.0-32.0); Mean Corpuscular Volume 89.5 fL (80-94); Mean Platelet Vol. 10.3 fl (6.2-12.0); Monocyte# 0.94 X10^3/uL; Monocyte% 6.5 % (0-10); NRBC Flagged by Analyzer 0 % (0-5); Neutrophil # 10.87 X10^3/uL (2.7-7.7); Neutrophil % 75.3 % (47-70); POSITIVE MORPHOLOGY YES; Platelet Count 453 K/mm3 (150-450); RBC Distribution Width SD 45.6 fl (35.1-43.9); Red Blood Count 4.87 M/mm3 (4.6-6.2); White Blood Count 14.4 K/mm3 (4.4-11.0)
[2023-01-29 06:20] LABS: Differential Indicated SCAN CRITERIA MET
[2023-01-29 06:40] LABS: Differential Comment SCANNED
--- NOTE | 2023-01-29 08:10 | PN.HOSP_ITS ---
Reason for Visit Reason for Visit: Diagnoses Type 2 diabetes mellitus without complications (01/24/23) Obstructive sleep apnea (adult) (pediatric) (01/24/23) Cutaneous abscess of abdominal wall (01/24/23) Cutaneous abscess of groin (01/24/23) Cellulitis of abdominal wall (01/24/23) Calculus of kidney (01/24/23) Subjective Subjective Had a wound VAC applied ED prior. Blood glucose levels reviewed patient had a drop today [place]. Subsequent adjustment made to his insulin regimen Objective Data Objective Data Vital Signs: Vital Signs Temp Pulse Resp BP Pulse Ox O2 Del Method O2 Flow Rate 97.7 F L 70 18 162/90 H 93 Room Air 2 01/29/23 03:51 01/29/23 03:51 01/29/23 03:51 01/29/23 03:51 01/29/23 03:51 01/29/23 03:51 01/25/23 04:00 Oxygen Flow Rate (L/min) 2 Oxygen Delivery Method Room Air Weight: 97.976 kg Body Mass Index (BMI) 35.9 Intake & Output: Intake and Output for Last 24 Hours 01/27/23 01/28/23 01/29/23 23:59 23:59 23:59 Intake Total 3454 / 3454 2648 / 2648 224 / 224 Output Total 1200 / 1200 1200 / 1200 850 / 850 Balance 2254 / 2254 1448 / 1448 -626 / -626 Lab / Micro Data 01/29/23 05:27 01/28/23 08:02 Labs: Laboratory Results - last 24 hr 01/28/23 08:02: WBC 14.1 H, RBC 4.97, Hgb 13.6, Hct 44.3, MCV 89.1, MCH 27.4, MCHC 30.7 L, RDW Std Deviation 45.1 H, RDW Coeff of July 14.0, Plt Count 428, MPV 10.0, Immature Gran % (Auto) 2.500 H, Neut % (Auto) 74.0 H, Lymph % (Auto) 13.7 L, [place] % (Auto) 6.0, Eos % (Auto) 3.0, Baso % (Auto) 0.8, Absolute Neuts (auto) 10.4 H, Absolute Lymphs (auto) 1.93, Nucleated RBC % 0, Sodium 137, Potassium 4.2, Chloride 106, Carbon Dioxide 26.0, Anion Gap 5, BUN 9, Creatinine 0.63 L, Estim Creat Clear Calc 101.69, Est GFR (MDRD) Af Amer 165, Est GFR (MDRD) Non-Af 136, BUN/Creatinine Ratio 14.3, Glucose 215 H, Calcium 9.1 01/28/23 08:24: POC Glucose 220 H 01/28/23 12:08: POC Glucose 145 H 01/28/23 16:45: POC Glucose 138 H 01/28/23 22:26: POC Glucose 100 01/29/23 05:27: WBC 14.4 H, RBC 4.87, Hgb 13.7, Hct 43.6, MCV 89.5, MCH 28.1, MCHC 31.4 L, RDW Std Deviation 45.6 H, RDW Coeff of July 14.0, Plt Count 453 H, MPV 10.3, Immature Gran % (Auto) 2.600 H, Neut % (Auto) 75.3 H, Lymph % (Auto) 12.6 L, [place] % (Auto) 6.5, Eos % (Auto) 2.7, Baso % (Auto) 0.3, Absolute Neuts (auto) 10.9 H, Absolute Lymphs (auto) 1.82, Nucleated RBC % 0, Differential Comment SCANNED Micro: Microbiology 01/24/23 14:56 Tissue - Abdominal Gram Stain - Final 01/24/23 14:56 Tissue - Abdominal Wound Culture - Final Streptococcus agalactiae (B) Staphylococcus epidermidis 01/24/23 14:58 Wound Abcess - Aerobic & Anaerobic Swabs Gram Stain - Final 01/24/23 14:58 Wound Abcess - Aerobic & Anaerobic Swabs Wound Culture - Final Streptococcus agalactiae (B) 01/24/23 14:58 Wound Abcess - Aerobic & Anaerobic Swabs Anaerobic Culture - Preliminary 01/24/23 17:23 Blood Culture (Wb) - Left Wrist Blood Culture - Preliminary No growth in 48 hours. 01/24/23 17:15 Blood Culture (Wb) - Anticubital Left Blood Culture - Preliminary No growth in 48 hours. Physical Exam Narrative GENERAL: cooperative HEENT: Atraumatic; normocephalic EYES; Anicteric, Normal Conjunctiva NECK; supple, normal thyroid, RESPIRATORY: Diminished to auscultation CARDIOVASCULAR: Regular S1 S2, GI: soft, normoactive bowel sounds, : No Renal angle tenderness; EXTREMITIES: No edema, no clubbing, MUSCULOSKELETAL: Surgical dressing right groin NEURO: Awake; no lateralizing signs. SKIN: No Rash PSYCH; Flat affect Assessment & Plan Assessment/Plan (1) New onset type 2 diabetes mellitus: (2) RC (obstructive sleep apnea): (3) Kidney stones: (4) Abscess of right groin: PLAN: Plan Patient is a 67-year-old gentleman with history of diabetes mellitus type 2 admitted with right groin abscess underwent I&D by general surgery cultures sent 1. Right groin abscess ? Patient underwent I&D by general surgery on 01/24/2023 cultures sent wound subsequently packed awaiting results ? 01/26/2023 7 cultures positive for Streptococcus atelectatic ? 01/27/2023: Patient WBC count trending down ? 01/28/2023 wound VAC placement planned for today ? 01/29/2023 wound VAC was placed the day prior 2. Diabetes mellitus type II ? Hemoglobin A1c on admission was 10.9. Patient placed on Accu-Cheks before meals and at bedtime with sliding scale coverage as well as long-acting insulin with consultation placed to dietitian and diabetic education ? 01/26/2023; patient was started on long-acting insulin the day prior blood glucose control still not optimal adjusted dose and added scheduled Premeal short acting insulin in addition to sliding scale correction factor ? 01/27/2023 patient blood glucose levels still not optimal subsequent adjustmen t made to his insulin regimen ? 01/28/2023 subsequent adjustment made to patient glucose regimen with goal to keep blood glucose level less than 200 ? 01/29/2023; did scale back patient's insulin regimen 3. Obstructive sleep apnea ? 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 Class II obesity with BMI of 35.9 ? Complicating care, Weight loss advised 5. DVT prophylaxis ? We will recommend low molecular weight heparin if no contraindication will defer decision to initiate to general surgery Time spent in the patient's overall evaluation,decision-making process, review of diagnostic data, adjustment of management, discussion with other providers, nursing nursing and ancillary staff involved in patient's care documentation, 35 minutes Charges/Coding Visit Charges Inpatient E&M: 50325 Subs Hosp L2
[2023-01-29 08:23] VITALS: BP 163/94; PULSE 69; RESP 16; TEMP 36.6; O2SAT 94
[2023-01-29] MEDS: Insulin Glargine-YFGN 100 UNIT/ML Pen 40 UNIT SC ×2 (08:25→08:31)
[2023-01-29] MEDS: Insulin Lispro 100 UNIT/ML INSULN.PEN 15 UNIT SC (08:30)
--- NOTE | 2023-01-29 09:05 | PCM.PN.SRG ---
Subjective Subjective Seen and examined during AM rounds. He is found sitting out of bed in a chair. He states that he feels well and complains only of some itching overnight before he was given some cream to ease that issue. He denies any increased pain and is content at rest. Objective Data Objective Data Vital Signs: Vital Signs Temp Pulse Resp BP Pulse Ox O2 Del Method O2 Flow Rate 97.8 F 69 16 163/94 H 94 Room Air 2 01/29/23 08:23 01/29/23 08:23 01/29/23 08:23 01/29/23 08:23 01/29/23 08:23 01/29/23 08:23 01/25/23 04:00 Oxygen Flow Rate (L/min) 2 Oxygen Delivery Method Room Air Weight: 216 lb 0.002 oz Body Mass Index (BMI) 35.9 Intake & Output: Intake and Output for Last 24 Hours 01/27/23 01/28/23 01/29/23 23:59 23:59 23:59 Intake Total 3454 / 3454 2648 / 2648 224 / 224 Output Total 1200 / 1200 1200 / 1200 850 / 850 Balance 2254 / 2254 1448 / 1448 -626 / -626 Lab / Micro Data 01/29/23 05:27 01/28/23 08:02 Labs: Laboratory Results - last 24 hr 01/28/23 12:08: POC Glucose 145 H 01/28/23 16:45: POC Glucose 138 H 01/28/23 22:26: POC Glucose 100 01/29/23 05:27: WBC 14.4 H, RBC 4.87, Hgb 13.7, Hct 43.6, MCV 89.5, MCH 28.1, MCHC 31.4 L, RDW Std Deviation 45.6 H, RDW Coeff of July 14.0, Plt Count 453 H, MPV 10.3, Immature Gran % (Auto) 2.600 H, Neut % (Auto) 75.3 H, Lymph % (Auto) 12.6 L, [place] % (Auto) 6.5, Eos % (Auto) 2.7, Baso % (Auto) 0.3, Absolute Neuts (auto) 10.9 H, Absolute Lymphs (auto) 1.82, Nucleated RBC % 0, Differential Comment SCANNED Micro: Microbiology 11/14/23 14:56 Tissue - Abdominal Gram Stain - Final 01/24/23 14:56 Tissue - Abdominal Wound Culture - Final Streptococcus agalactiae (B) Staphylococcus epidermidis 01/24/23 14:58 Wound Abcess - Aerobic & Anaerobic Swabs Gram Stain - Final 01/24/23 14:58 Wound Abcess - Aerobic & Anaerobic Swabs Wound Culture - Final Streptococcus agalactiae (B) 01/24/23 14:58 Wound Abcess - Aerobic & Anaerobic Swabs Anaerobic Culture - Preliminary 01/24/23 17:23 Blood Culture (Wb) - Left Wrist Blood Culture - Preliminary No growth in 48 hours. 01/24/23 17:15 Blood Culture (Wb) - Anticubital Left Blood Culture - Preliminary No growth in 48 hours. Physical Exam Const oriented x3 and no apparent distress Resp normal respiratory effort GI GI Narrative: Patient with stable abdominal exam and wound VAC appears appropriate with a excellent seal per seal check. There is no significant purulent fluid. I do not feel any crepitus around the area of the sponge even considering the region of the undermining. Overall patient's cellulitis continues to have an improved appearance. Narrative: Persistent scrotal edema and cellulitis. Patient states that he feels this is somewhat improved. I do not feel any crepitus. Assessment & Plan Assessment/Plan (1) Abscess of abdominal wall: PLAN: Patient is postoperative day 5 from operative incision and drainage with limited debridement for large abdominal wall abscess. Patient reporting that he feels well and there is no pain. Labs were reviewed. WBC has stabilize 14->14 again today. Patient remains afebrile. Antibiotics narrowed to Unasyn after conferencing with pharmacy over patient's cultures positive for strep agalactiae. Cultures also showing Staph epidermidis. Patient newly diagnosed diabetic and blood sugars are now improved and consistently under 200. HGB A1C was 10.9 Wound remains sealed and wound VAC dressing with excellent seal and minimal air leak. Patient has tolerated this transition well. There is not appear to be any exceptional or concerning drainage within the collection canister. I do not feel any periwound crepitus to suggest undrained collections. There is some edema of the patient's scrotum so I have recommended elevating this on a washcloth. We will plan to reassess his wound with VAC change tomorrow and if white count remains changed or elevated may consider repeating imaging with packing removed to help with CT interpretation. (2) Abscess of right groin: Charges/Coding Visit Charges Inpatient E&M: 87794 Subs Hosp L2
[2023-01-29 09:10] LABS: Bedside Glucose 120 mg/dL (74-106)
[2023-01-29] MEDS: Menthol/Lanolin/Calamine/Znox 113 GM Tube 1 APPLIC TOPICAL ×2 (09:53→22:00)
[2023-01-29] MEDS: Miconazole Nitrate 43 GM Bottle 1 APPLIC TOPICAL ×2 (09:55→22:00)
[2023-01-29] MEDS: Insulin Lispro 100 UNIT/ML INSULN.PEN SC ×4 (10:24→22:06)
[2023-01-29 11:32] LABS: Bedside Glucose 153 mg/dL (74-106)
[2023-01-29] MEDS: 0.9% Normal Saline (250mL Bag) 250 ML 15 ML IV (11:50)
[2023-01-29] MEDS: Insulin Glargine-YFGN 100 UNIT/ML Pen 25 UNIT SC (16:37)
[2023-01-29 16:44] VITALS: BP 155/85; PULSE 62; RESP 16; TEMP 36.8; O2SAT 90
[2023-01-29 16:57] LABS: Bedside Glucose 149 mg/dL (74-106)
[2023-01-29 21:51] VITALS: BP 153/95; PULSE 90; RESP 16; TEMP 37.3; O2SAT 90
[2023-01-29 22:20] LABS: Bedside Glucose 160 mg/dL (74-106)
[2023-01-30] MEDS: Ampicillin/Sulbactam 3 GM in 0.9% Normal Saline (100mL MB+) 100 ML IV ×3 (00:23→12:07)
[2023-01-30] MEDS: Acetaminophen 500 MG Tablet 1000 MG PO ×3 (03:39→21:29)
[2023-01-30 04:10] VITALS: BP 148/91; PULSE 82; RESP 18; TEMP 37.1; O2SAT 92
[2023-01-30 06:54] LABS: Bedside Glucose 141 mg/dL (74-106)
[2023-01-30 07:18] LABS: Absolute Lymphocyte Count 1.89 X10^3/uL (0.83-4.51); Absolute Neutrophil Count 11.1 X10^3/uL (2.0-7.7); Basophil# 0.11 X10^3/uL; Basophil% 0.7 % (0-1); Eosinophil# 0.36 X10^3/uL; Eosinophils% 2.4 % (0-5); Hematocrit 43.7 % (40-54); Hemoglobin 13.6 g/dL (13.0-16.5); Lymphocyte # 1.89 X10^3/ul (0.83-4.51); Lymphocyte % 12.8 % (19-41); Mean Corp Hgb Conc 31.1 g/dL (32-36); Mean Corpuscular Hgb 27.5 pg (27.0-32.0); Mean Corpuscular Volume 88.5 fL (80-94); Monocyte# 0.92 X10^3/uL; Monocyte% 6.2 % (0-10); NRBC Flagged by Analyzer 0 % (0-5); Neutrophil % 75.3 % (47-70); Platelet Count 477 K/mm3 (150-450); RBC Distribution Width CV 13.9 % (11.6-14.6); RBC Distribution Width SD 44.5 fl (35.1-43.9); Red Blood Count 4.94 M/mm3 (4.6-6.2); White Blood Count 14.8 K/mm3 (4.4-11.0)
[2023-01-30] MEDS: Menthol/Lanolin/Calamine/Znox 113 GM Tube 1 APPLIC TOPICAL (07:44)
[2023-01-30] MEDS: Miconazole Nitrate 43 GM Bottle 1 APPLIC TOPICAL (07:44)
[2023-01-30] MEDS: DAKIN'S SOL HALF STRENGTH (=0.25%) 1 APPLIC TOPICAL (07:45)
[2023-01-30 07:46] VITALS: BP 148/93; PULSE 81; RESP 18; TEMP 36.9; O2SAT 97
[2023-01-30] MEDS: Insulin Glargine-YFGN 100 UNIT/ML Pen 25 UNIT SC ×2 (08:49→17:01)
[2023-01-30 09:37] LABS: Pathologist Review Reviewed
[2023-01-30] MEDS: HYDROmorphone 0.5 MG/0.5 ML SYRINGE IV (09:59)
[2023-01-30 10:48] VITALS: O2SAT 96
--- NOTE | 2023-01-30 10:56 | CT_ITS ---
STUDY: CT ABDOMEN AND PELVIS WITH CONTRAST REASON FOR EXAM: Male, 67 years old. Status post drainage of abdominal wall abscess. RADIATION DOSAGE (If Supplied By Facility): CTDIvol = ( 9.77 ) mGy, DLP = ( 1046.93 ) mGycm TECHNIQUE: Transaxial images were obtained through the abdomen and pelvis without oral contrast. 100 ml of Isovue-300 contrast was administered. Sagittal and coronal images were reconstructed. Individualized dose optimization techniques were used for this CT. COMPARISON: Prior study dated: 01/24/2023 FINDINGS: LOWER THORAX: The visualized lung bases are clear. The visualized portions of the heart and pericardium are within normal limits. GALLBLADDER / BILE DUCTS: There are no calcified gallstones present. There is no intrahepatic biliary duct dilatation. The common bile duct is normal in caliber. There are no calcified ductal stones. LIVER: The liver is within normal limits. There are no suspicious hepatic lesions. SPLEEN: The spleen is normal in size. PANCREAS: The pancreas is within normal limits. ADRENAL GLANDS: The adrenal glands are within normal limits. KIDNEYS / BLADDER: There are stable subcentimeter nonobstructing renal collecting system stones bilaterally, measuring up to 8 mm. There are no ureteral stones. There is no hydronephrosis. There are stable bilateral renal cysts. The urinary bladder is partially distended and appears grossly unremarkable. STOMACH / BOWEL: Normal visualized stomach. There is no bowel obstruction or inflammation. The appendix is not visualized, but there are no findings to suggest acute appendicitis. PERITONEUM/RETROPERITONEUM: There is no abdominal or pelvic free air, free fluid or fluid collection. There is no abnormal soft tissue mass identified. There is no abdominal or pelvic lymphadenopathy. VESSELS: The aorta is normal in caliber. The IVC is unremarkable. BONES: There are no destructive osseous lesions. SOFT TISSUES: The patient is status post drainage of the previously seen fluid collection in the anterior abdominal wall. There is no residual fluid collection. There is subcutaneous soft tissue air and subcutaneous fat stranding noted which is likely related to the recent intervention. CT/Abdomen/Pelvis W IV Cont ONLY IMPRESSION: Status post drainage of the previously seen fluid collection in the anterior abdominal wall. No residual fluid collection. Subcutaneous soft tissue air and subcutaneous fat stranding noted which is likely related to the recent intervention. Electronically Signed: Brant Pickard MD at 11:39 EST ,
[2023-01-30 10:58] VITALS: O2SAT 96
[2023-01-30] MEDS: Insulin Lispro 100 UNIT/ML INSULN.PEN SC ×5 (11:01→21:28)
--- NOTE | 2023-01-30 11:11 | WOUNDNOTE ---
wound photo: right lower abdomen/groin
[2023-01-30] MEDS: 0.9% Saline Lock 10 ML Syringe IV (12:07)
--- NOTE | 2023-01-30 13:40 | PCM.PN.SRG ---
Subjective Subjective Patient seen and examined during AM rounds. He was transferred to [facility] floor overnight. He is resting in bed. He denies any increased pain and is content at rest. Objective Data Objective Data Vital Signs: Vital Signs Temp Pulse Resp BP Pulse Ox O2 Del Method O2 Flow Rate 98.5 F 81 18 148/93 H 96 Room Air 2 01/30/23 07:46 01/30/23 07:46 01/30/23 07:46 01/30/23 07:46 01/30/23 10:58 01/30/23 10:58 01/25/23 04:00 Oxygen Flow Rate (L/min) 2 Oxygen Delivery Method Room Air Weight: 216 lb 0.002 oz Body Mass Index (BMI) 35.9 Intake & Output: Intake and Output for Last 24 Hours 01/28/23 01/29/23 01/30/23 23:59 23:59 23:59 Intake Total 2648 / 2648 988 / 988 461 / 461 Output Total 1200 / 1200 850 / 850 1250 / 1250 Balance 1448 / 1448 138 / 138 -789 / -789 Lab / Micro Data 01/30/23 06:50 01/28/23 08:02 Labs: Laboratory Results - last 24 hr 01/25/23 06:50: Diff Path Review Reviewed 01/29/23 16:35: POC Glucose 149 H 01/29/23 21:59: POC Glucose 160 H 01/30/23 06:35: POC Glucose 141 H 01/30/23 06:50: WBC 14.8 H, RBC 4.94, Hgb 13.6, Hct 43.7, MCV 88.5, MCH 27.5, MCHC 31.1 L, RDW Std Deviation 44.5 H, RDW Coeff of July 13.9, Plt Count 477 H, MPV 10.0, Immature Gran % (Auto) 2.600 H, Neut % (Auto) 75.3 H, Lymph % (Auto) 12.8 L, [place] % (Auto) 6.2, Eos % (Auto) 2.4, Baso % (Auto) 0.7, Absolute Neuts (auto) 11.1 H, Absolute Lymphs (auto) 1.89, Nucleated RBC % 0 Micro: Microbiology 01/24/23 14:56 Tissue - Abdominal Gram Stain - Final 01/24/23 14:56 Tissue - Abdominal Wound Culture - Final Streptococcus agalactiae (B) Staphylococcus epidermidis 01/24/23 14:56 Tissue - Abdominal Anaerobic Culture - Preliminary Gram negative analisa Anaerobic cocci 01/24/23 14:58 Wound Abcess - Aerobic & Anaerobic Swabs Gram Stain - Final 01/24/23 14:58 Wound Abcess - Aerobic & Anaerobic Swabs Wound Culture - Final Streptococcus agalactiae (B) 01/24/23 14:58 Wound Abcess - Aerobic & Anaerobic Swabs Anaerobic Culture - Preliminary Gram negative analisa Anaerobic cocci 01/24/23 17:23 Blood Culture (Wb) - Left Wrist Blood Culture - Final No growth in 5 days. 01/24/23 17:15 Blood Culture (Wb) - Anticubital Left Blood Culture - Final No growth in 5 days. Radiography Diagnostic Testing: Radiology Impression Abdomen/Pelvis CT 01/30/23 10:56 IMPRESSION: Status post drainage of the previously seen fluid collection in the anterior abdominal wall. No residual fluid collection. Subcutaneous soft tissue air and subcutaneous fat stranding noted which is likely related to the recent intervention. Electronically Signed: Brant Pickard MD at 11:39 EST , Physical Exam Const oriented x3 and no apparent distress Resp normal respiratory effort GI GI Narrative: Patient with stable abdominal exam and wound VAC appears appropriate with a excellent seal per seal check. There is no significant purulent fluid. Patient's cellulitis and induration?particularly to the area of the mons?remains stable. When wound VAC was removed patient has healthy, viable granulation tissue covering majority of the wound cavity. There do not appear to be any further areas of undetected loculation. Narrative: Persistent scrotal edema and cellulitis. Patient states that he feels this is somewhat improved. I do not feel any crepitus. Assessment & Plan Assessment/Plan (1) Abscess of abdominal wall: PLAN: Patient is postoperative day 6 from operative incision and drainage with limited debridement for large abdominal wall abscess. Patient reporting that he feels well and there is no pain. Labs were reviewed. WBC remains stable 14->14 again today but differential was slightly up. Patient remains afebrile. Given the persistence of patient's leukocytosis and the slight indicators of this differential I elected to proceed with repeat CT imaging which was unremarkable save changes consistent with his prior operation. Antibiotics narrowed to Unasyn after conferencing with pharmacy over patient's cultures positive for strep agalactiae. Cultures also showing Staph epidermidis. Hospitalist service has consulted ID for outpatient antibiotic regimen. Patient newly diagnosed diabetic and blood sugars are now improved and consistently under 200. HGB A1C was 10.9 With the reassurance of patient's CT, referenced above, wound VAC was replaced with improved patient tolerance. We are still awaiting approval for wound VAC and home health. Tentatively plan for discharge to home tomorrow. (2) Abscess of right groin: Charges/Coding Visit Charges Inpatient E&M: 24621 Subs Hosp L2
--- NOTE | 2023-01-30 14:08 | PCM.CONS.GEN ---
Assessment & Plan Assessment/Plan (1) Abscess of abdominal wall: PLAN: OR 01/24/[address] Turner for I&D. Surg cx with GBS, MSSE, anaerobes. On unasyn, feeling much better. Repeat CT this AM showed no residual abscess. Had some symptomatic relative hypoglycemia last night. Wbc stable today. Continue unasyn, plan on short course po abx at discharge. Will follow, thank you (2) New onset type 2 diabetes mellitus: (3) Leukocytosis: HPI Consult Data Date of Consult: 01/30/23 HPI Narrative Reason for Consultation: abscess HPI Narrative: JASON JOYNER, is a 67 M who presented 01/24 with about 10 days progressive boil in RLQ. Saw urgent care, I&D done, given po doxy but sx worsened. Had associated fever and chills, progressive redness and drainage. Came to ED, admitted on iv abx. Taken to OR 01/[address] Turner for deep I&D. Now on unasyn, feeling good, wound vac currently off. Some mild dry cough since admit. Full ROS performed and neg except as noted above. [facility] Medical History Kidney stones Home Medications doxycycline hyclate 100 mg capsule 100 mg PO BID antibiotic 01/24/23 [History Last Taken 01/23/23] Allergy/AdvReac Type Severity Reaction Status Date / Time No Known Allergies Allergy Verified 01/24/23 07:51 Surgical History History of hammer toe correction History of knee surgery History of tonsillectomy Social History Smoking Status: Never smoker second hand exposure: Yes Physical Exam Const alert, oriented x3 and no apparent distress General Appearance: cooperative HEENT normocephalic and head/scalp atraumatic Eyes PERRL and EOMs intact bilaterally Neck supple and No nodes Resp normal air movement and clear to auscultation bilaterally Cardio regular rate and regular rhythm GI soft to palpation, non-tender and non-distended Extremity General Extremity: Negative for edema Skin Skin Narrative: reviewed wound photos Neuro CN's II-XII intact bilaterally Lab / Micro Data Attestation: I reviewed the patient's lab results. 01/30/23 06:50 01/28/23 08:02 Labs: Laboratory Results - last 24 hr 01/25/23 06:50: Diff Path Review Reviewed 01/29/23 16:35: POC Glucose 149 H 01/29/23 21:59: POC Glucose 160 H 01/30/23 06:35: POC Glucose 141 H 01/30/23 06:50: WBC 14.8 H, RBC 4.94, Hgb 13.6, Hct 43.7, MCV 88.5, MCH 27.5, MCHC 31.1 L, RDW Std Deviation 44.5 H, RDW Coeff of July 13.9, Plt Count 477 H, MPV 10.0, Immature Gran % (Auto) 2.600 H, Neut % (Auto) 75.3 H, Lymph % (Auto) 12.8 L, [place] % (Auto) 6.2, Eos % (Auto) 2.4, Baso % (Auto) 0.7, Absolute Neuts (auto) 11.1 H, Absolute Lymphs (auto) 1.89, Nucleated RBC % 0 Micro: Microbiology 01/24/23 14:56 Tissue - Abdominal Gram Stain - Final 01/24/23 14:56 Tissue - Abdominal Wound Culture - Final Streptococcus agalactiae (B) Staphylococcus epidermidis 01/24/23 14:56 Tissue - Abdominal Anaerobic Culture - Preliminary Gram negative analisa Anaerobic cocci 01/24/23 14:58 Wound Abcess - Aerobic & Anaerobic Swabs Gram Stain - Final 01/24/23 14:58 Wound Abcess - Aerobic & Anaerobic Swabs Wound Culture - Final Streptococcus agalactiae (B) 01/24/23 14:58 Wound Abcess - Aerobic & Anaerobic Swabs Anaerobic Culture - Preliminary Gram negative analisa Anaerobic cocci 01/24/23 17:23 Blood Culture (Wb) - Left Wrist Blood Culture - Final No growth in 5 days. 01/24/23 17:15 Blood Culture (Wb) - Anticubital Left Blood Culture - Final No growth in 5 days. Imagaing Radiology Impression Abdomen/Pelvis CT 01/30/23 10:56 IMPRESSION: Status post drainage of the previously seen fluid collection in the anterior abdominal wall. No residual fluid collection. Subcutaneous soft tissue air and subcutaneous fat stranding noted which is likely related to the recent intervention. Electronically Signed: Brant Pickard MD at 11:39 EST ,
--- NOTE | 2023-01-30 14:47 | PN.HOSP_ITS ---
Subjective Subjective Doing well, no issues overnight Objective Data Objective Data Vital Signs: Vital Signs Temp Pulse Resp BP Pulse Ox O2 Del Method O2 Flow Rate 98.5 F 81 18 148/93 H 96 Room Air 2 01/30/23 07:46 01/30/23 07:46 01/30/23 07:46 01/30/23 07:46 01/30/23 10:58 01/30/23 10:58 01/25/23 04:00 Oxygen Flow Rate (L/min) 2 Oxygen Delivery Method Room Air Weight: 216 lb 0.002 oz Body Mass Index (BMI) 35.9 Intake & Output: Intake and Output for Last 24 Hours 01/29/23 01/30/23 01/31/23 03:59 03:59 03:59 Intake Total 2648 / 2648 1225 / 1225 224 / 224 Output Total 1200 / 1200 850 / 850 1250 / 1250 Balance 1448 / 1448 375 / 375 -1026 / -1026 Lab / Micro Data 01/30/23 06:50 01/28/23 08:02 Labs: Laboratory Results - last 24 hr 01/25/23 06:50: Diff Path Review Reviewed 01/29/23 16:35: POC Glucose 149 H 01/29/23 21:59: POC Glucose 160 H 01/30/23 06:35: POC Glucose 141 H 01/30/23 06:50: WBC 14.8 H, RBC 4.94, Hgb 13.6, Hct 43.7, MCV 88.5, MCH 27.5, MCHC 31.1 L, RDW Std Deviation 44.5 H, RDW Coeff of July 13.9, Plt Count 477 H, MPV 10.0, Immature Gran % (Auto) 2.600 H, Neut % (Auto) 75.3 H, Lymph % (Auto) 12.8 L, [place] % (Auto) 6.2, Eos % (Auto) 2.4, Baso % (Auto) 0.7, Absolute Neuts (auto) 11.1 H, Absolute Lymphs (auto) 1.89, Nucleated RBC % 0 Micro: Microbiology 01/24/23 14:56 Tissue - Abdominal Gram Stain - Final 01/24/23 14:56 Tissue - Abdominal Wound Culture - Final Streptococcus agalactiae (B) Staphylococcus epidermidis 01/24/23 14:56 Tissue - Abdominal Anaerobic Culture - Preliminary Gram negative analisa Anaerobic cocci 01/24/23 14:58 Wound Abcess - Aerobic & Anaerobic Swabs Gram Stain - Final 01/24/23 14:58 Wound Abcess - Aerobic & Anaerobic Swabs Wound Culture - Final Streptococcus agalactiae (B) 01/24/23 14:58 Wound Abcess - Aerobic & Anaerobic Swabs Anaerobic Culture - Preliminary Gram negative analisa Anaerobic cocci 01/24/23 17:23 Blood Culture (Wb) - Left Wrist Blood Culture - Final No growth in 5 days. 01/24/23 17:15 Blood Culture (Wb) - Anticubital Left Blood Culture - Final No growth in 5 days. Radiography Diagnostic Testing: Radiology Impression Abdomen/Pelvis CT 01/30/23 10:56 IMPRESSION: Status post drainage of the previously seen fluid collection in the anterior abdominal wall. No residual fluid collection. Subcutaneous soft tissue air and subcutaneous fat stranding noted which is likely related to the recent intervention. Electronically Signed: Brant Pickard MD at 11:39 EST , Physical Exam Narrative General: Alert, Oriented x3, Cooperative, No apparent distress HEENT: Atraumatic, PERRLA, EOMI, Normocephalic Oral: Moist Mucosa Neck: Supple, No JVD Lungs: Clear to auscultation, Normal air movement, No rhonchi, No wheeze, No rales Cardiovascular: Regular rate, Regular Rhythm, Normal S1, Normal S2, No murmurs Abdomen: Soft, Non Tender, Non-Distended, No Hepato-splenomegaly Extremities: No edema, Capillary Refill Less than 3 Seconds Skin: Wound VAC in place Musculoskeletal: No Tenderness to Palpation of Joints or Extremities Neurological: Cranial nerves II-XII grossly intact, Motor Exam 5/5 strength throughout, Sensory exam intact to light touch and pain Psych/Mental Status: Normal Affect, Appropriate Assessment & Plan Assessment/Plan (1) New onset type 2 diabetes mellitus: (2) RC (obstructive sleep apnea): (3) Kidney stones: (4) Abscess of right groin: PLAN: Plan 1. Right groin abscess ? Patient underwent I&D by general surgery on 01/24/2023 cultures sent wound subsequently packed awaiting results ? 01/26/2023 7 cultures positive for Streptococcus atelectatic ? 01/27/2023: Patient WBC count trending down ? 01/28/2023 wound VAC placement planned for today ? 01/29/2023 wound VAC was placed the day prior ? 01/30/2023: White count still hovering around 14-[address] scan is showing no significant changes. Consulted ID recommendation was to continue Unasyn, will transition to Augmentin as he is staying for another day as his wound VAC has not been improved by insurance yet to see if this demonstrates any change in his white count given surgery is concerned. 2. Diabetes mellitus type II ? Hemoglobin A1c on admission was 10.9. Patient placed on Accu-Cheks before meals and at bedtime with sliding scale coverage as well as long-acting insulin with consultation placed to dietitian and diabetic education ? 01/26/2023; patient was started on long-acting insulin the day prior blood glucose control still not optimal adjusted dose and added scheduled Premeal short acting insulin in addition to sliding scale correction factor ? 01/27/2023 patient blood glucose levels still not optimal subsequent adjustment made to his insulin regimen ? 01/28/2023 subsequent adjustment made to patient glucose regimen with goal to keep blood glucose level less than 200 ? 01/29/2023; did scale back patient's insulin regimen 3. Obstructive sleep apnea ? Patient was followed by pulmonary medicine, however PAP therapy was not initiated after patient was lost to follow-up patient encouraged to schedule an appointment with his rn medical inpatient services for reevaluation 4. Class II obesity with BMI of 35.9 ? Complicating care, Weight loss advised DVT: SCDs Charges/Coding Visit Charges Inpatient E&M: 99227 Subs Hosp L2
[2023-01-30 16:28] LABS: Bedside Glucose 205 mg/dL (74-106)
[2023-01-30] MEDS: Amox/Clavulanate 875 MG Tablet PO (16:28)
[2023-01-30 16:48] LABS: Bedside Glucose 221 mg/dL (74-106)
[2023-01-30 17:27] VITALS: BP 130/87; PULSE 82; RESP 16; TEMP 36.8; O2SAT 94
[2023-01-30 21:00] VITALS: BP 136/90; PULSE 68; RESP 16; TEMP 36.8; O2SAT 94
[2023-01-31 02:43] VITALS: BP 133/89; PULSE 65; RESP 16; TEMP 36.8; O2SAT 97
[2023-01-31] MEDS: Acetaminophen 500 MG Tablet 1000 MG PO (05:51)
--- NOTE | 2023-01-31 06:31 | WOUNDNOTE ---
Home VAC approved.
[2023-01-31 07:10] LABS: Bedside Glucose 190 mg/dL (74-106)
[2023-01-31 07:49] LABS: Absolute Lymphocyte Count 1.74 X10^3/uL (0.83-4.51); Absolute Neutrophil Count 7.5 X10^3/uL (2.0-7.7); Basophil# 0.12 X10^3/uL; Basophil% 1.1 % (0-1); Eosinophil# 0.35 X10^3/uL; Eosinophils% 3.2 % (0-5); Hematocrit 42.7 % (40-54); Hemoglobin 13.4 g/dL (13.0-16.5); Lymphocyte # 1.74 X10^3/ul (0.83-4.51); Lymphocyte % 15.8 % (19-41); Mean Corp Hgb Conc 31.4 g/dL (32-36); Mean Corpuscular Hgb 27.6 pg (27.0-32.0); Mean Corpuscular Volume 87.9 fL (80-94); Mean Platelet Vol. 9.9 fl (6.2-12.0); Monocyte% 9.1 % (0-10); NRBC Flagged by Analyzer 0 % (0-5); Neutrophil # 7.51 X10^3/uL (2.7-7.7); Neutrophil % 68.3 % (47-70); Platelet Count 518 K/mm3 (150-450); RBC Distribution Width CV 13.9 % (11.6-14.6); Red Blood Count 4.86 M/mm3 (4.6-6.2)
[2023-01-31] MEDS: Insulin Lispro 100 UNIT/ML INSULN.PEN SC ×5 (07:53→16:15)
[2023-01-31] MEDS: Menthol/Lanolin/Calamine/Znox 113 GM Tube 1 APPLIC TOPICAL (07:56)
[2023-01-31] MEDS: Insulin Glargine-YFGN 100 UNIT/ML Pen 25 UNIT SC ×2 (07:56→16:19)
[2023-01-31] MEDS: Amox/Clavulanate 875 MG Tablet PO ×2 (07:56→16:19)
[2023-01-31 08:13] LABS: Anion Gap 3 (5-15); BUN 11 mg/dL (7-18); BUN/Creat Ratio 16.6 RATIO (10-20); Calcium,Total 9.2 mg/dL (8.5-10.1); Chloride 103 mmol/L (98-107); Creatinine, Serum 0.66 mg/dL (0.70-1.30); EST Glomerular Filtration Rate 128 mL/min (>60); Est Glom Filt Rate - Afr Amer 155 mL/min (>60); Estimated Creatinine Clearance 97.06 ml/min; Glucose 174 mg/dL (74-106); Potassium 4.3 mmol/L (3.5-5.1); Sodium Level 137 mmol/L (136-145)
[2023-01-31 08:49] LABS: Bedside Glucose 155 mg/dL (74-106)
--- NOTE | 2023-01-31 09:34 | CASEMGMT ---
Addendum entered by Nancy Colby 01/31/23 15:59: Spoke with Jessica at [facility], she states that they are awaiting the insurance at this time and they are assuring her that they may have an answer yet today. Updated hospitalist and Dr. Turner. Provided pt with a BGM rx at this time. Pt and updated on status of HHC. They are aware that should he go home today, [facility] will be out tomorrow to change the wound vac. Pt and deny further needs. Addendum entered by Nancy Colby 01/31/23 13:37: COOKIE KILGORE spoke with pt and and updated on status of insurance approving [facility]. Pt states he has contacted his agent to see if he can expedite this as well. Pt and aware that as soon as this is approved COOKIE KILGORE will make them aware. Addendum entered by Nancy Colby 01/31/23 12:29: Received tc back from Jessica at [facility], she states that once it is approved for a one time contract, then rates will need to be negotiated. This may not be likley for a dc yet today but will continue working on this. Updated hospitalist. Addendum entered by Nancy Colby 01/31/23 10:01: Received tc from Jessica at [facility], she states she spoke to [facility] and they are expediting the request as this will need to be approved by [facility]. Awaiting approval. Original Note: COOKIE KILGORE notified in rounds that pt is ready for dc today. TC to Lorie at [facility] to check status of insurance approval. She states as of yesterday they have not received approval. She will follow up today. She is aware that the pt can be dc'd today with wound vac changed tomorrow. The wound vac has been approved per wound nurse.
[2023-01-31 10:30] VITALS: BP 154/91; PULSE 69; RESP 18; TEMP 36.6; O2SAT 96
--- NOTE | 2023-01-31 10:44 | PCM.PN.ID ---
Physical Exam Narrative Feeling better, no fever, no n/v/d. Const alert and no apparent distress General Appearance: cooperative Resp normal air movement and clear to auscultation bilaterally Cardio regular rate and regular rhythm GI soft to palpation, non-tender and non-distended Skin Skin Narrative: wound vac in place ID ID: Route of nutrition/ use of supplements: [] Nutritional Intake: [] IV Site: [] Lin Catheter: [] Assessment & Plan Assessment/Plan (1) Abscess of abdominal wall: PLAN: OR 01/24/[address] Turner for I&D. Surg cx with GBS, MSSE, anaerobes. On unasyn, feeling much better. Repeat CT showed no residual abscess. Wbc now normal. Ok for d/c home off of abx. Will follow (2) New onset type 2 diabetes mellitus: (3) Leukocytosis:
[2023-01-31 12:05] LABS: Bedside Glucose 162 mg/dL (74-106)
--- NOTE | 2023-01-31 13:23 | DCINST_ITS ---
Discharge Instructions Diet Discharge Diet: Carb Control Diet Activity Discharge Activity: May Not Drive (No driving while using narcotic pain medication) and May Shower Dressing / Incision Call your doctor if your incision/area has: Continuous Slow Oozing, Increased Pain/ Swelling, Increased Redness, Foul Smelling Discharge, Swelling at the incision site and - (Wound VAC alarms for more than 2 hours) Call your doctor if you observe: Fever of 101 or Higher Cleanse incision/area with: Soap & Water Additional Dressing/Incision Instructions:: vac change q 48 hours. remove sponges, shower, then reapply Follow Up Care Please Follow Up With: Kenneth Turner MD When: 2 weeks post hospital discharge Test Results: Test results from this visit will be discussed in further detail at your follow- up appointment, if applicable. Discharge Plan Admission Admit Date/Time: 01/24/23 12:21 Primary Reason for Your Visit: Incision and drainage/debridement of right abdominal wall abscess Attending Provider: Kenneth Turner Primary Care Provider: Care Physician,No Primary Consulting Providers: Rupali Wagoner; Kenneth Turner; Boston Cabello; Mac Alvarez; Corey Patel Discharge Orders/Prescriptions Prescriptions: New amoxicillin-pot clavulanate 875-125 mg Tablet 1 tab PO BIDCM 7 Days Qty: 14 0RF metformin 500 mg tablet extended release 24 hr 500 mg PO DAILY Qty: 30 0RF insulin glargine [Lantus Solostar U-100 Insulin] 100 unit/mL (3 mL) insulin pen 25 unit subcut DAILY Qty: 15 0RF Discontinued doxycycline hyclate 100 mg capsule 100 mg PO BID Patient Comments: RX FILLED AND STARTED ON 01-19-23. RX FILLED A 7 DAY SUPPLY Rx Instructions: TAKE 1 CAPSULE BY MOUTH 2 TIMES A DAY FOR 7 DAYS Other Ambulatory Orders: Glucometer (Routine) Timeframe: 1 Day Location: Determined by Patient Ordered By: Dr. Corey Patel Referrals / Follow Up: Care Physician,No Primary [Primary Care Provider] - Disposition Disposition (needs filled in before D/C Order can be placed): Home Health Service
--- NOTE | 2023-01-31 13:48 | PN.HOSP_ITS ---
Subjective Subjective Doing well, no issues overnight Objective Data Objective Data Vital Signs: Vital Signs Temp Pulse Resp BP Pulse Ox O2 Del Method O2 Flow Rate 97.8 F 69 18 154/91 H 96 Room Air 2 01/31/23 10:30 01/31/23 10:30 01/31/23 10:30 01/31/23 10:30 01/31/23 10:30 01/31/23 10:30 01/25/23 04:00 Oxygen Flow Rate (L/min) 2 Oxygen Delivery Method Room Air Weight: 216 lb 0.002 oz Body Mass Index (BMI) 35.9 Intake & Output: Intake and Output for Last 24 Hours 01/30/23 01/31/23 02/01/23 03:59 03:59 03:59 Intake Total 1225 / 1225 224 / 224 Output Total 850 / 850 1250 / 1250 Balance 375 / 375 -1026 / -1026 Lab / Micro Data 01/31/23 07:15 01/31/23 07:15 Labs: Laboratory Results - last 24 hr 01/30/23 10:56: POC Glucose 205 H 01/30/23 16:24: POC Glucose 221 H 01/30/23 21:27: POC Glucose 190 H 01/31/23 07:15: WBC 11.0, RBC 4.86, Hgb 13.4, Hct 42.7, MCV 87.9, MCH 27.6, MCHC 31.4 L, RDW Std Deviation 45.0 H, RDW Coeff of July 13.9, Plt Count 518 H, MPV 9.9, Immature Gran % (Auto) 2.500 H, Neut % (Auto) 68.3, Lymph % (Auto) 15.8 L, [place] % (Auto) 9.1, Eos % (Auto) 3.2, Baso % (Auto) 1.1 H, Absolute Neuts (auto) 7.5, Absolute Lymphs (auto) 1.74, Nucleated RBC % 0, Sodium 137, Potassium 4.3, Chloride 103, Carbon Dioxide 31.0, Anion Gap 3 L, BUN 11, Creatinine 0.66 L, Estim Creat Clear Calc 97.06, Est GFR (MDRD) Af Amer 155, Est GFR (MDRD) Non-Af 128, BUN/Creatinine Ratio 16.6, Glucose 174 H, Calcium 9.2 01/31/23 07:50: POC Glucose 155 H 01/31/23 11:25: POC Glucose 162 H Micro: Microbiology 01/24/23 14:58 Wound Abcess - Aerobic & Anaerobic Swabs Gram Stain - Final 01/24/23 14:58 Wound Abcess - Aerobic & Anaerobic Swabs Wound Culture - Final Streptococcus agalactiae (B) 01/24/23 14:58 Wound Abcess - Aerobic & Anaerobic Swabs Anaerobic Culture - Final Prevotella bivia Anaerobic cocci 01/24/23 14:56 Tissue - Abdominal Gram Stain - Final 01/24/23 14:56 Tissue - Abdominal Wound Culture - Final Streptococcus agalactiae (B) Staphylococcus epidermidis 01/24/23 14:56 Tissue - Abdominal Anaerobic Culture - Final Prevotella bivia Anaerobic cocci 01/24/23 17:23 Blood Culture (Wb) - Left Wrist Blood Culture - Final No growth in 5 days. 01/24/23 17:15 Blood Culture (Wb) - Anticubital Left Blood Culture - Final No growth in 5 days. Physical Exam Narrative General: Alert, Oriented x3, Cooperative, No apparent distress HEENT: Atraumatic, PERRLA, EOMI, Normocephalic Oral: Moist Mucosa Neck: Supple, No JVD Lungs: Clear to auscultation, Normal air movement, No rhonchi, No wheeze, No rales Cardiovascular: Regular rate, Regular Rhythm, Normal S1, Normal S2, No murmurs Abdomen: Soft, Non Tender, Non-Distended, No Hepato-splenomegaly Extremities: No edema, Capillary Refill Less than 3 Seconds Skin: Wound VAC in place Musculoskeletal: No Tenderness to Palpation of Joints or Extremities Neurological: Cranial nerves II-XII grossly intact, Motor Exam 5/5 strength throughout, Sensory exam intact to light touch and pain Psych/Mental Status: Normal Affect, Appropriate Assessment & Plan Assessment/Plan (1) New onset type 2 diabetes mellitus: (2) RC (obstructive sleep apnea): (3) Kidney stones: (4) Abscess of right groin: PLAN: Plan 1. Right groin abscess ? Patient underwent I&D by general surgery on 01/24/2023 cultures sent wound subsequently packed awaiting results ? 01/26/2023 7 cultures positive for Streptococcus atelectatic ? 01/27/2023: Patient WBC count trending down ? 01/28/2023 wound VAC placement planned for today ? 01/29/2023 wound VAC was placed the day prior ? 01/30/2023: White count still hovering around 14-[address] scan is showing no significant changes. Consulted ID recommendation was to continue Unasyn, will transition to Augmentin as he is staying for another day as his wound VAC has not been improved by insurance yet to see if this demonstrates any change in his white count given surgery is concerned. ? 01/31/2023: White count is improving on the Augmentin plan for discharge in the next day or so once home health is approved 2. Diabetes mellitus type II ? Hemoglobin A1c on admission was 10.9. Patient placed on Accu-Cheks before meals and at bedtime with sliding scale coverage as well as long-acting insulin with consultation placed to dietitian and diabetic education ? 01/26/2023; patient was started on long-acting insulin the day prior blood glucose control still not optimal adjusted dose and added scheduled Premeal short acting insulin in addition to sliding scale correction factor ? 01/27/2023 patient blood glucose levels still not optimal subsequent adjustment made to his insulin regimen ? 01/28/2023 subsequent adjustment made to patient glucose regimen with goal to keep blood glucose level less than 200 ? 01/29/2023; did scale back patient's insulin regimen ? 01/31/2023: We will plan to discharge on glucometer as well as 25 units of Lantus daily and 500 mg of metformin extended release daily with outpatient follow-up 3. Obstructive sleep apnea ? Patient was followed by pulmonary medicine, however PAP therapy was not initiated after patient was lost to follow-up patient encouraged to schedule an appointment with his food and nutrition teacher for reevaluation 4. Class II obesity with BMI of 35.9 ? Complicating care, Weight loss advised DVT: SCDs Charges/Coding Visit Charges Inpatient E&M: 11702 Subs Hosp L2
[2023-01-31 16:14] VITALS: BP 139/89; PULSE 70; RESP 18; TEMP 36.9; O2SAT 93
--- NOTE | 2023-01-31 16:30 | DS.PCM_ITS ---
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 Routine Comment: Reason for Consult:: abscess 01/26/23 13:49 Consult: Hospitalist Routine Consulting Provider: Corey Patel Reason for Consult: medical mgmt EMERGENT Consult: No MD Notified: Yes Date Notified: 01/24/23 Time Notified: 11:49 Method of Notification: Verbal 01/30/23 09:35 Consult: Infectious Disease Routine Consulting Provider: Mac Alvarez Reason for Consult: abx recommendation for discharge EMERGENT Consult: No MD Notified: Yes Date Notified: 01/30/23 Time Notified: 09:57 Method of Notification: Text Reason For Visit: CELLULITIS Diagnosis Discharge Diagnosis (1) New onset type 2 diabetes mellitus: Status: Acute Code(s): E11.9 - Type 2 diabetes mellitus without complications (2) RC (obstructive sleep apnea): Status: Acute Code(s): G47.33 - Obstructive sleep apnea (adult) (pediatric) (3) Kidney stones: Status: Acute Code(s): N20.0 - Calculus of kidney (4) Abscess of right groin: Status: Acute Code(s): L02.214 - Cutaneous abscess of groin Medications at Discharge Home Medications amoxicillin 875 mg-potassium clavulanate 125 mg tablet 1 tab PO BIDCM 7 days #14 tabs 01/31/23 insulin glargine 100 unit/mL (3 mL) subcutaneous pen (Lantus Solostar U-100 Insulin) 25 unit (0.25 mL) subcut DAILY #15 mL 01/31/23 metformin 500 mg tablet,extended release 24 hr 500 mg PO DAILY #30 tabs 01/31/23 Hospital Course Operations - (Incision and drainage/debridement of right abdominal wall abscess 01/24/2023) Summary of Care Provided Hospital Course: Patient is a 67-year-old male who presented with a large abdominal wall/right groin abscess on 01/24/2023. He had reported a prior outpatient I&D procedure at urgent care but despite this and a course of oral antibiotics had experience growth of this infection. Given its sheer size emergent I&D was recommended and patient provided his consent. This was undertaken the same day as his presentation and he was postoperatively admitted to the [facility]. There he underwent administration with empiric broad-spectrum antibiotics and twice daily wound changes with wet-to-dry dressings. He was also treated for newly diagnosed diabetes with an evolving insulin regimen per the hospitalist service via consultation. On 01/28/2023 his operative cultures had resulted and after conferencing with our pharmacy staff I transitioned him to Unasyn mon otherapy. That same day I placed him in a negative pressure wound VAC therapy he tolerated this change well and daily reported that he was feeling better. However, for the next couple of days his white count remained elevated and his differential seem to suggest a persistent infection. Therefore, when he was due for his next dressing change on 01/30/2023 I asked nursing to have him shower and allow the wound to be irrigated but not repacked the wound immediately and sent him for a urgent CT scan of the abdomen and pelvis to exclude any undrained loculations. Following imaging radiology confirmed that there were no suspicious collections and the wound was redressed with a VAC. Unfortunately, there was a delay in obtaining approval for home health, but patient was transition to oral antibiotics with Augmentin after approval from infectious disease on 01/30/2023. By the following day, 01/31/2023 we had received insurance approval for both home health as for his wound VAC and the hospitalist service had determined an appropriate outpatient insulin regimen. Patient had earlier admitted that he did not have a primary care provider in the area, but agreed to see if his 's primary care provider (who is already managing her diagnosis of diabetes) would consider taking him on as a new patient. This suggestion was strongly encouraged. Thus with these arrangements in place, jah overton was granted discharge to home and was asked to plan to follow-up in 2 weeks time for wound evaluation. Physical Exam Const alert, oriented x3 and no apparent distress GI GI Narrative: Healthy abdominal wall wound with granulation tissue along the wound base no necrotic debris or undrained loculations. Persistent cellulitis present in the mons area. Wound VAC with excellent seal. Weight / BMI Weight Weight: 216 lb 0.002 oz Body Mass Index (BMI) 35.9 ABG / Lab / Microbiology Data 01/31/23 07:15 01/31/23 07:15 Laboratory: Laboratory Results - last 24 hr 01/30/23 16:24: POC Glucose 221 H 01/30/23 21:27: POC Glucose 190 H 01/31/23 07:15: WBC 11.0, RBC 4.86, Hgb 13.4, Hct 42.7, MCV 87.9, MCH 27.6, MCHC 31.4 L, RDW Std Deviation 45.0 H, RDW Coeff of July 13.9, Plt Count 518 H, MPV 9.9, Immature Gran % (Auto) 2.500 H, Neut % (Auto) 68.3, Lymph % (Auto) 15.8 L, Frio % (Auto) 9.1, Eos % (Auto) 3.2, Baso % (Auto) 1.1 H, Absolute Neuts (auto) 7.5, Absolute Lymphs (auto) 1.74, Nucleated RBC % 0, Sodium 137, Potassium 4.3, Chloride 103, Carbon Dioxide 31.0, Anion Gap 3 L, BUN 11, Creatinine 0.66 L, Estim Creat Clear Calc 97.06, Est GFR (MDRD) Af Amer 155, Est GFR (MDRD) Non-Af 128, BUN/Creatinine Ratio 16.6, Glucose 174 H, Calcium 9.2 01/31/23 07:50: POC Glucose 155 H 01/31/23 11:25: POC Glucose 162 H Microbiology: Microbiology 01/24/23 14:58 Wound Abcess - Aerobic & Anaerobic Swabs Gram Stain - Final 01/24/23 14:58 Wound Abcess - Aerobic & Anaerobic Swabs Wound Culture - Final Streptococcus agalactiae (B) 01/24/23 14:58 Wound Abcess - Aerobic & Anaerobic Swabs Anaerobic Culture - Final Prevotella bivia Anaerobic cocci 01/24/23 14:56 Tissue - Abdominal Gram Stain - Final 01/24/23 14:56 Tissue - Abdominal Wound Culture - Final Streptococcus agalactiae (B) Staphylococcus epidermidis 01/24/23 14:56 Tissue - Abdominal Anaerobic Culture - Final Prevotella bivia Anaerobic cocci 01/24/23 17:23 Blood Culture (Wb) - Left Wrist Blood Culture - Final No growth in 5 days. 01/24/23 17:15 Blood Culture (Wb) - Anticubital Left Blood Culture - Final No growth in 5 days. D/C Instructions Discharge Diet: Carb Control Diet Call your doctor if your incision/area has: Continuous Slow Oozing, Increased Pain/ Swelling, Increased Redness, Foul Smelling Discharge, Swelling at the incision site and - (Wound VAC alarms for more than 2 hours) Call your doctor if you observe: Fever of 101 or Higher Cleanse incision/area with: Soap & Water Additional Dressing/Incision Instructions: vac change q 48 hours. remove sponges, shower, then reapply Please Follow Up With: Kenneth Turner MD When: 2 weeks post hospital discharge Meaningful Use Info Meaningful Use Diagnoses (Choose all that apply): None applicable Discharge Plan Admission Admit Date/Time: 01/24/23 12:21 Primary Reason for Your Visit: Incision and drainage/debridement of right abdominal wall abscess Attending Provider: Kenneth Turner Primary Care Provider: Care Physician,No Primary Consulting Providers: Rupali Wagoner; Kenneth Turner; [place] Cabello; Sander Alvarez; Corey Patel Discharge Orders/Prescriptions Prescriptions: New amoxicillin-pot clavulanate 875-125 mg Tablet 1 tab PO BIDCM 7 Days Qty: 14 0RF metformin 500 mg tablet extended release 24 hr 500 mg PO DAILY Qty: 30 0RF insulin glargine [Lantus Solostar U-100 Insulin] 100 unit/mL (3 mL) insulin pen 25 unit subcut DAILY Qty: 15 0RF Discontinued doxycycline hyclate 100 mg capsule 100 mg PO BID Patient Comments: RX FILLED AND STARTED ON 01-19-23. RX FILLED A 7 DAY SUPPLY Rx Instructions: TAKE 1 CAPSULE BY MOUTH 2 TIMES A DAY FOR 7 DAYS Other Ambulatory Orders: Glucometer (Routine) Timeframe: 1 Day Location: Determined by Patient Ordered By: Dr. Corey Patel Referrals / Follow Up: Care Physician,No Primary [Primary Care Provider] - Disposition Disposition (needs filled in before D/C Order can be placed): Home Health Service Charges/Coding Visit Charges Inpatient E&M: 54730 Disch Hosp
[2023-01-31 16:55] LABS: Bedside Glucose 146 mg/dL (74-106)
== END 2023-01-31 17:45 | disposition home health service (06) | DRG 581 ==
LOC: ED 11:57 → PCU 12:26 → MS3 01-29 18:29
PROVIDERS: Family Medicine; Internal Medicine; Admitting Provider Surgery; Emergency Provider Emergency Medicine; Visit Provider Surgery
PROC: 0KBK0ZZ Excision of Right Abdomen Muscle, Open Approach (ICD-10-PCS; principal; 2023-01-24 13:50)
DX: L02.211 Cutaneous abscess of abdominal wall (principal); E11.649 Type 2 diabetes mellitus with hypoglycemia without coma; B95.61 Methicillin susceptible Staphylococcus aureus infection as the cause of diseases classified elsewhere; E11.628 Type 2 diabetes mellitus with other skin complications; B95.1 Streptococcus, group B, as the cause of diseases classified elsewhere; B95.7 Other staphylococcus as the cause of diseases classified elsewhere; E11.65 Type 2 diabetes mellitus with hyperglycemia; Z79.4 Long term (current) use of insulin; G47.33 Obstructive sleep apnea (adult) (pediatric); E66.09 Other obesity due to excess calories; B96.6 Bacteroides fragilis [B. fragilis] as the cause of diseases classified elsewhere; L03.311 Cellulitis of abdominal wall; L03.314 Cellulitis of groin; L02.214 Cutaneous abscess of groin; Z71.3 Dietary counseling and surveillance; Z68.35 Body mass index [BMI] 35.0-35.9, adult; Z79.84 Long term (current) use of oral hypoglycemic drugs
CPT/HCPCS: 36415; 74177; 80048; 80202; 82962; 83036; 83605; 83735; 84100; 85025; 86140; 87040; 87070; 87075; 87077; 87186; 87205; 93005; 97803; 99284; J7030; J7040; J7050; Q9967; A4216; J0295; J2405